=== PATIENT | female | born 1940 | race Caucasian/White ===

== ENCOUNTER 2018-01-05 10:09 | Emergency (ER) | payer OTHER, BC ==
[2018-01-05 10:18] VITALS: BP 123/55; PULSE 79; TEMP 98.3; BMI 19.8
--- NOTE | 2018-01-05 10:36 | PDOC ---
History of Present Illness - General Chief Complaint: Pain, Acute Stated Complaint: LEFT FOOT PAIN Time Seen by Provider: 01/05/18 10:18 History Source: Patient Exam Limitations: No Limitations - History of Present Illness Initial Comments: 01/05/18 10:36 77y F hx of MS (on copaxone, steroid infusion every 7 weeks), hypothyroidism, presents with complaint of L foot pain. Pt states that she was feeling fine, went out for a walk on , wearing sneakers, and noted mild discomfort on her L heel. She noticed it gradually became more painful over the past few days especially when she was walking, denies any fever, but noted she felt a chills yesterday. denies any falls/injuries, back pain, knee pain, hip pain, back pain , cp, sob, cough, abd pain, numbness/tingling/weakness. she went to an urgent care who gave hjer bactroban yesterday, she went back today and was referred to the ED for evaluation. Past History - Past Medical History Allergies/Adverse Reactions: Allergies Allergy/AdvReac Type Severity Reaction Status Date / Time No Known Allergies Allergy Verified 01/05/18 10:10 Home Medications: Ambulatory Orders Aspirin [ASA -] 81 mg PO DAILY 01/05/18 Glatiramer Acetate [Copaxone] 20 mg SQ ASDIR 01/05/18 Levothyroxine [Synthroid -] 112 mcg PO DAILY 01/05/18 Lisinopril [Zestril] 2.5 mg PO HS 01/05/18 Omeprazole 20 mg PO BID 01/05/18 Pravastatin Sodium [Pravachol (Nf)] 20 mg PO HS 01/05/18 COPD: No GI Disorders: Yes (ACID REFLUX) Thyroid Disease: Yes (HYPO) Other medical history: MS - Suicide/Smoking/Psychosocial Hx Smoking History: Former smoker Have you smoked in the past 12 months: No If you are a former smoker, when did you quit?: 1969 Information on smoking cessation initiated: No Hx Alcohol Use: Yes Drug/Substance Use Hx: No Substance Use Type: Alcohol Review of Systems - Review of Systems Able to Perform ROS?: Yes Comments:: 01/05/18 10:40 Constitutional - no reported Fever, Chills, Respiratory: no reported cough, sob, hemoptysis Cardiac: no reported chest pain, Abd/GI: no reported abd pain, nausea, vomiting, blood per rectum, melena, diarrhea : no reported dysuria, frequency, discharge Musculskelatal - +L heel pain no reported back pain, joint swelling skin - no reported bruising, erythema, rash neurological: no reported headache, numbness, focal weakness, tingling, ataxia, hematologic: no reported easy bruising, easy bleeding *Physical Exam - Vital Signs Last Vital Signs Temp Pulse Resp BP Pulse Ox 98.3 F 79 18 123/55 100 01/05/18 10:10 01/05/18 10:10 01/05/18 10:10 01/05/18 10:10 01/05/18 10:10 - Physical Exam Comments: 01/05/18 10:41 GENERAL: The patient is awake, alert, and fully oriented, Nontoxic - in no acute distress. EXTREMITIES: Normal range of motion, no edema. No clubbing or cyanosis. L heel , aprox .5cm palpable mass that is tender, central black tierney, cap refil <1 sec b/l, no warmth, induration, there are 4x nontender, not warm areas of blanching erythema on the heel (2-3 mm). NEUROLOGICAL: No facial assymetry, Normal speech, moving all 4 extremities spontaneously and symmetrically SKIN: Warm, Dry, normal turgor, see above ED Treatment Course - LABORATORY CBC & Chemistry Diagram: 01/05/18 10:00 Medical Decision Making - Medical Decision Making 01/05/18 10:44 ?fb no signs of acute infection including erythema, induration, fluctuance, warmth will ck xray due to hx of chills and being on immunosupressives due to MS will ck cbc will reassess 01/05/18 11:56 pts xray neg for fb or other acute process cbc w/o leukocytosis will dc the pt with podiatry fu pt feeling improved, abule to weight bear return precautions were discussed I discussed the physical exam findings, ancillary test results and final diagnoses with the patient. I answered all of the patient's questions. The patient was satisfied with the care received and felt comfortable with the discharge plan and treatment plan. The patient will call their primary care physician within 24 hours to arrange follow-up and will return to the Emergency Department with any new, persistent or worsening symptoms. *DC/Admit/Observation/Transfer Diagnosis at time of Disposition: Pain of right heel - Discharge Dispostion Disposition: HOME Condition at time of disposition: Improved Admit: No - Referrals - Patient Instructions Printed Discharge Instructions: DI for Foot Pain Additional Instructions: Return to the emergency department immediately with ANY new, persistent or worsening symptoms including any redness, swelling, warmth, worsening pain or other concerns. Rest over the next 2 or 3 days, avoid long walks. Motrin as needed for pain. Keep your legs elevated to minimize swelling You MUST call and follow up with a tumbler tender in 3-4 days for further evaluation of your symptoms. Results were discussed with you. Please make sure your doctor reviews the results of your emergency evaluation. Print Language: SLOVENIAN - Post Discharge Activity
[2018-01-05 11:03] LABS: HEMOGLOBIN 12.2 GM/dl (10.7-15.3); MCH 25.9 pg (25.7-33.7); MEAN CELL VOLUME 76.2 fl (80-96); MEAN PLT VOLUME 7.4 fl (7.5-11.1); PLATELET COUNT 262 K/MM3 (134-434); RBC 4.72 M/mm3 (3.60-5.2); RDW 14.4 % (11.6-15.6); WHITE BLOOD COUNT 8.2 K/mm3 (4.0-10.8)
[2018-01-05] MEDS ORDERED: IBUPROFEN 400 MG TABLET (FP) PO ONE ×2 (11:55→11:56)
[2018-01-05 15:25] LABS: PLATELET ESTIMATE ADEQUATE
== END 2018-01-05 12:01 | disposition home or self-care (01) ==
LOC: FER 10:09
DX: M79.672 Pain in left foot (principal); G35 Multiple sclerosis; E03.9 Hypothyroidism, unspecified; Z79.82 Long term (current) use of aspirin; K21.9 Gastro-esophageal reflux disease without esophagitis; Z87.891 Personal history of nicotine dependence
CPT/HCPCS: 36415; 73630-TC-LT; 85025; 99281-25

== ENCOUNTER 2018-05-13 14:52 | Observation (INO) | payer OTHER, BC ==
--- NOTE | 2018-05-13 15:02 | PDOC ---
History of Present Illness - General Chief Complaint: Diarrhea Stated Complaint: 4 DAYS DIARRHEA Time Seen by Provider: 05/13/18 14:53 - History of Present Illness Initial Comments: 77 year female of MS (on copaxone, steroid infusion every 7 weeks - last dose 5 weeks prior), hypothyroidism, and hypertension presenting with stool leakage for the past 3-4 nights in the setting of daily multi-episode diarrhea. States that during the night for the past three nights she has found watery stool in her bed that she was not aware of passing. During the day she has 3-4 episodes of watery diarrhea that she recognizes and is able to get to the bathroom in time to relieve. Denies fevers, chills, nausea, vomiting, abdominal pain, chest pain, SOB, or other symptoms. She has tried a BRAT diet and emptying her bowels / stoppign food intake at 14:00 everyday but without much lied of her symptoms. She has never had this night time stool leakage in the past. She has had a similar experience of frequent diarrhea three years prior that she attributed to some salad that she ate and she was treated by her GI doctor with a prescription medication that she states helped her. She attributes this episode to a "bad avocado" she ate 4 days prior. Her MS physician is Dr. Brownlee out of [facility]. 05/13/18 15:21 Past History - Past Medical History Allergies/Adverse Reactions: Allergies Allergy/AdvReac Type Severity Reaction Status Date / Time No Known Allergies Allergy Verified 05/13/18 14:53 Home Medications: Ambulatory Orders Aspirin [ASA -] 81 mg PO DAILY 01/05/18 Glatiramer Acetate [Copaxone] 20 mg SQ ASDIR 01/05/18 Levothyroxine [Synthroid -] 112 mcg PO DAILY 01/05/18 Lisinopril [Zestril] 5 mg PO HS 01/05/18 Omeprazole 20 mg PO BID 01/05/18 Pravastatin Sodium [Pravachol -] 40 mg PO HS 01/05/18 Cholecalciferol (Vitamin D3) [Vitamin D -] 2,000 unit PO DAILY 05/13/18 Diphenoxylate HCl/Atropine [Lomotil Tablet] 1 each PO Q6H PRN #30 tablet MDD 4 05/19/18 COPD: No GI Disorders: Yes (ACID REFLUX) Thyroid Disease: Yes (HYPO) - Suicide/Smoking/Psychosocial Hx Smoking History: Former smoker Have you smoked in the past 12 months: No If you are a former smoker, when did you quit?: 1970 Hx Alcohol Use: Yes Drug/Substance Use Hx: No Substance Use Type: Alcohol Review of Systems - Review of Systems Constitutional: No: Chills, Diaphoresis, Fever, Loss of Appetite HEENTM: No: Tearing, Recent change in vision Respiratory: No: Cough, Shortness of Breath Cardiac (ROS): No: Chest Pain, Edema, Irregular Heart Rate, Lightheadedness ABD/GI: Yes: Diarrhea. No: Nausea, Poor Appetite, Poor Fluid Intake, Vomiting, Abdominal cramping, Tarry Stools : No: Burning, Dysuria, Discharge, Frequency Musculoskeletal: No: Joint Pain, Joint Swelling, Muscle Weakness Integumentary: No: Bruising, Change in Color, Lesions, Lumps Neurological: No: Headache, Numbness, Paresthesia Psychiatric: No: Anxiety, Depression Endocrine: No: Increased Hunger, Increased Thirst Hematologic/Lymphatic: No: Anemia, Blood Clots, Easy Bleeding *Physical Exam - Physical Exam General Appearance: Yes: Nourished, Appropriately Dressed. No: Apparent Distress HEENT: positive: EOMI, DAVIS, Normal Voice, Other (Dry mucous membranes). negative: Normal ENT Inspection Neck: positive: Trachea midline, Normal Thyroid, Supple. negative: Tender, Rigid Respiratory/Chest: positive: Lungs Clear, Normal Breath Sounds. negative: Chest Tender, Respiratory Distress, Accessory Muscle Use Cardiovascular: positive: Regular Rhythm, Regular Rate Gastrointestinal/Abdominal: positive: Flat, Soft, Increased Bowel Sounds. negative: Normal Bowel Sounds, Tender Rectal Exam: positive: decreased tone. negative: normal rectal tone (decreased rectal tone but normal sensation), hemorrhoids Musculoskeletal: positive: Normal Inspection. negative: Decreased Range of Motion Extremity: positive: Normal Capillary Refill, Normal Inspection, Normal Range of Motion. negative: Tender Integumentary: positive: Normal Color, Dry, Warm Neurologic: positive: Fully Oriented, Alert, Normal Mood/Affect, Normal Response , Motor Strength 5/5 ED Treatment Course - LABORATORY CBC & Chemistry Diagram: 05/16/18 07:15 05/16/18 07:15 Medical Decision Making - Medical Decision Making Patient's presentation is highly suspicious for MS flare up given fecal incontinence and diminished rectal tone. Patient very hesitant about receiving further care in our facility as she has "hotbed operator" physicians in [place] [facility] who "are the best" in their field and she would like to follow up with them. We discussed this case with neurology in our facility and eventually she agreed to admission. Her labs were WNL and patient will be worked up further by neurology and medicine. *DC/Admit/Observation/Transfer Diagnosis at time of Disposition: Fecal incontinence - Discharge Dispostion Disposition: HOME Condition at time of disposition: Stable - Prescriptions - Referrals - Patient Instructions - Post Discharge Activity
[2018-05-13] MEDS ORDERED: SODIUM CHLORIDE 0.9% 500 ML INFUS.BAG IV ONE (16:16)
--- NOTE | 2018-05-13 16:31 | PDOC ---
Attending Attestation - Resident Resident Name: Edwin Hendrix - ED Attending Attestation I have performed the following: I have examined & evaluated the patient, The case was reviewed & discussed with the resident, I agree w/resident's findings & plan, Exceptions are as noted - HPI HPI: 05/13/18 16:29 77yo F hx MS (on steroids every 7 weeks, last 5 weeks ago), hypthyroid, HTN presents with 4 days of diarrhea 3-4 times per day. Stool is watery, brown, non bloody. She is concerned due to new fecal incontinence overnight for the last 3 days which she has never had before. She has been taking 10-12 loperamide daily (2mg each). Has tried BRAT diet with no relief. Denies abd pain, N/V. Reports some stomach rumbling prior to diarrhea. Reports she was on an antibiotic in the last 3 months for a UTI, does not remember the name. Pt reports a bowel movement every time she eats and reports 4lb weight loss over the last 4 days. Denies fevers, chills, cp, sob, focal weakness/numbness, headache, visual symptoms. Follows with MS specialist at [place]. No hx stool incontinence. - Physicial Exam PE: 05/13/18 17:05 GENERAL: Awake, alert, and fully oriented, in no acute distress HEAD: No signs of trauma EYES: PERRLA, EOMI, sclera anicteric, conjunctiva clear ENT: Oropharynx clear without exudates. Dry MM LUNGS: Breath sounds equal, clear to auscultation bilaterally. No wheezes, and no crackles HEART: Regular rate and rhythm, normal S1 and S2, no murmurs, rubs or gallops ABDOMEN: Soft, nontender, normoactive bowel sounds. No guarding, no rebound. No masses EXTREMITIES: Normal range of motion, no edema. No clubbing or cyanosis. No cords, erythema, or tenderness NEUROLOGICAL: agree with resident exam SKIN: Warm, Dry, normal turgor, no rashes or lesions noted. - Medical Decision Making 05/13/18 17:06 77yo F hx MMP including MS presents to the ED with 3-4 days of diarrhea with associated fecal incontinence. Vs wnl. Exam per Dr. Hendrix with mildly decreased rectal tone. DDx includes gastroenteritis vs colitis (possibly c.diff due to recent abx) vs MS flare. Plan -labs -IVF -stool studies -discuss with pt's neurologist -reassess 05/13/18 19:[address] Tyler who recommends MRI brain w/wo and lumbar MRI w/o Case discussed with EDB Hurtado Pt admitted to Dr. Pendleton obs Case discussed in detail with admitting physician including history, physical exam and ancillary studies. Admitting physician has assumed care for the patient, will follow all pending diagnostics and will complete the evaluation and treatment. Discharge Disposition - Diagnosis Fecal incontinence - Discharge Dispostion Disposition: HOME Condition at time of disposition: Stable Decision to Admit order: Yes - Prescriptions - Referrals - Patient Instructions - Post Discharge Activity
[2018-05-13 17:02] LABS: BASO % 0.4 % (0-2.0); EOS % 1.3 % (0-4.5); HEMATOCRIT 36.1 % (32.4-45.2); HEMOGLOBIN 11.7 GM/dl (10.7-15.3); LYMPH % 35.4 % (8-40); MCH 25.2 pg (25.7-33.7); MCHC 32.5 g/dl (32.0-36.0); MEAN CELL VOLUME 77.7 fl (80-96); MEAN PLT VOLUME 8.3 fl (7.5-11.1); MONO % 15.1 % (3.8-10.2); NEUT % 47.8 % (42.8-82.8); PLATELET COUNT 214 K/MM3 (134-434); RBC 4.64 M/mm3 (3.60-5.2); WHITE BLOOD COUNT 3.2 K/mm3 (4.0-10.8)
[2018-05-13 17:12] LABS: ALBUMIN 3.6 g/dl (3.5-5.0); ALK PHOS 45 U/L (32-92); ANION GAP 9 MMOL/L (8-16); BILIRUBIN,TOTAL 0.6 mg/dl (0.2-1.0); BLOOD UREA NITROGEN 13 mg/dl (7-18); CALCIUM 8.9 mg/dl (8.4-10.2); CHLORIDE 99 mmol/L (98-107); CO2 26 mmol/L (22-28); CREATININE 0.6 mg/dl (0.6-1.3); GLUCOSE,RANDOM 105 mg/dl (74-106); SGOT/AST 21 U/L (10-42); SGPT/ALT 12 U/L (10-40); SODIUM 134 mmol/L (136-145); TOT PROT 6.4 g/dl (6.4-8.3)
[2018-05-13] MEDS ORDERED: POTASSIUM CHLORIDE TABS 20 MEQ TABLET.ER (FP) PO ONE ×2 (17:39→18:23)
--- NOTE | 2018-05-13 22:24 | HP ---
CHIEF COMPLAINT: diarrhea PCP: Bria Sanchez; Neuro: Dr. Brownlee @ [facility] ([facility]) HISTORY OF PRESENT ILLNESS: This is a 77 year old female with a past medical history significant for MS and HTN who presented to the ED with a 4-5 day history of loose watery BMS. Initially BMs were much more frequent, now 3-4 times during the day. She reports chills one day last week but otherwise denies fever. She is concerned because she notes that she is incontinent of stool at night for the past several nights. She states that she wakes up soiled. During the day she notes a sense of urgency to make it to the toilet to have a BM but is able to make it. She thinks this may be related to an avocado she ate last week. She had a similar episode 3 years ago after eating from a salad bar and she was referred to a english drawer at [facility] who prescribed a medication for her that resolved her symptoms completely. SHe reports that her stool is a light reddish brown color. She denies any blood or mucous in the stool. The ED staff report a foul odor to the stool. ER course was notable for: (1) WBC 3.2 (2) K 3.0 Recent Travel: pt denies PAST MEDICAL HISTORY: HTN, MS, hypothyroid PAST SURGICAL HISTORY: Social History: Smoking: smoked in college and grad school. none since Alcohol: occasional Drugs: pt denies Family History: brother s/p prostate ca, + ETOH Allergies No Known Allergies Allergy (Verified 05/13/18 14:53) HOME MEDICATIONS: 3 Medication Instructions Recorded Aspirin [ASA -] 81 mg PO DAILY 01/05/18 Glatiramer Acetate [Copaxone] 20 mg SQ ASDIR 01/05/18 Levothyroxine [Synthroid -] 112 mcg PO DAILY 01/05/18 Lisinopril [Zestril] 2.5 mg PO HS 01/05/18 Omeprazole 20 mg PO BID 01/05/18 Pravastatin Sodium [Pravachol (Nf)] 20 mg PO HS 01/05/18 Cholecalciferol (Vitamin D3) 200 unit PO DAILY 05/13/18 [Vitamin D3 -] Loperamide HCl [Loperamide] 2 mg PO PRN PRN 05/13/18 REVIEW OF SYSTEMS CONSTITUTIONAL: Absent: fever, chills, diaphoresis, generalized weakness, malaise, loss of appetite, weight change HEENT: Absent: rhinorrhea, nasal congestion, throat pain, throat swelling, difficulty swallowing, mouth swelling, ear pain, eye pain, visual changes CARDIOVASCULAR: Absent: chest pain, syncope, palpitations, irregular heart rate, lightheadedness , peripheral edema RESPIRATORY: Absent: cough, shortness of breath, dyspnea with exertion, orthopnea, wheezing, stridor, hemoptysis GASTROINTESTINAL: Present: diarrhea Absent: abdominal pain, abdominal distension, nausea, vomiting, constipation, melena, hematochezia GENITOURINARY: Absent: dysuria, frequency, urgency, hesitancy, hematuria, flank pain, genital pain MUSCULOSKELETAL: Absent: myalgia, arthralgia, joint swelling, back pain, neck pain SKIN: Absent: rash, itching, pallor HEMATOLOGIC/IMMUNOLOGIC: Absent: easy bleeding, easy bruising, lymphadenopathy, frequent infections ENDOCRINE: Absent: unexplained weight gain, unexplained weight loss, heat intolerance, cold intolerance NEUROLOGIC: Absent: headache, focal weakness or paresthesias, dizziness, unsteady gait, seizure, mental status changes, bladder or bowel incontinence PSYCHIATRIC: Absent: anxiety, depression, suicidal or homicidal ideation, hallucinations. PHYSICAL EXAMINATION Vital Signs - 24 hr 3 05/13/18 05/13/18 14:53 20:41 Temperature 97.5 F L Pulse Rate 73 Pulse Rate [ 88 Left] Respiratory 20 18 Rate Blood Pressure 127/77 Blood Pressure 145/71 [Right] O2 Sat by Pulse 100 100 Oximetry (%) GENERAL: Awake, alert, and fully oriented, in no acute distress. HEAD: Normal with no signs of trauma. EYES: Pupils equal, round and reactive to light, extraocular movements intact, sclera anicteric, conjunctiva clear. No lid lag. EARS, NOSE, THROAT: Ears normal, nares patent, oropharynx clear without exudates. Moist mucous membranes. NECK: Normal range of motion, supple without lymphadenopathy, JVD, or masses. LUNGS: Breath sounds equal, clear to auscultation bilaterally. No wheezes, and no crackles. No accessory muscle use. HEART: Regular rate and rhythm, normal S1 and S2 without murmur, rub or gallop. ABDOMEN: Soft, nontender, not distended, normoactive bowel sounds, no guarding, no rebound, no masses. No hepatomegaly or splenomegaly. MUSCULOSKELETAL: Normal range of motion at all joints. No bony deformities or tenderness. No CVA tenderness. UPPER EXTREMITIES: 2+ pulses, warm, well-perfused. No cyanosis. No clubbing. No peripheral edema. LOWER EXTREMITIES: 2+ pulses, warm, well-perfused. No calf tenderness. No peripheral edema. NEUROLOGICAL: Cranial nerves II-XII intact. Normal speech. Normal gait. PSYCHIATRIC: Cooperative. Good eye contact. Appropriate mood and affect. SKIN: Warm, dry, normal turgor, no rashes or lesions noted, normal capillary refill. Laboratory Results - last 24 hr 3 05/13/18 05/13/18 16:00 16:00 WBC 3.2 L RBC 4.64 Hgb 11.7 Hct 36.1 MCV 77.7 L MCH 25.2 L MCHC 32.5 RDW 15.0 Plt Count 214 MPV 8.3 Absolute Neuts (auto) 1.6 Neutrophils % 47.8 Lymphocytes % 35.4 Monocytes % 15.1 H Eosinophils % 1.3 Basophils % 0.4 Sodium 134 L Potassium 3.0 L Chloride 99 Carbon Dioxide 26 Anion Gap 9 BUN 13 Creatinine 0.6 Creat Clearance w eGFR > 60 Random Glucose 105 Calcium 8.9 Total Bilirubin 0.6 AST 21 ALT 12 Alkaline Phosphatase 45 Total Protein 6.4 Albumin 3.6 Chest xray official read pending, no obvious infiltrates or effusions ASSESSMENT/PLAN: 77yF with PMH MS, HTN, hypothyroidism presented to the ED with a 4-5 day h/o LBM with nocturnal fecal incontinence. Acute diarrheal illness - stool sent for testing - start flagyl - consider GI consult - consider CT abd/pel if not improving - BRAT diet as pt with no abd pain fecal incontinency - likely due to urgency associated with acute diarrheal illness - ED resident reported mildly decreased rectal tone on exam - will proceed with MRI head and l-s spine as recommended by neuro to r/o new lesions/demyelinating plaques hypokalemia - given 40mEq po - repeat bmp 12am MS - cont home copaxone - receives IV steroids [id number], last 4 weeks ago HTN - cont home meds HLD - home pravachol changed to formulary lipitor hypothyroid - TSH in am - cont home synthroid DVT PPX - heparin deferred as expected LOS less than 48h, pt encourage to ambulate FEN - NS @ 75cc/hr - BMP at midnight - BRAT diet Dispo: pt currently requires further observation for management of her emergent condition. Visit type - Emergency Visit Emergency Visit: Yes ED Registration Date: 05/13/18 Care time: The patient presented to the Emergency Department on the above date and was hospitalized for further evaluation of their emergent condition. - New Patient This patient is new to me today: Yes Date on this admission: 05/13/18 - Critical Care Critical Care patient: No Hospitalist Screening - Colonoscopy Questionnaire Colonoscopy Questionnaire: Colonoscopy Questionnaire - Patient: 50 - 75 years old and never had a screening colonoscopy: No History of colon or rectal polyps, or CA: No History of IBD, Crohn's disease or UC: No History of abdominal radiation therapy as a child: No - Relative: 1 with colon or rectal CA, or polyps at age 60 or younger: No Colon or rectal CA diagnosed at age 45 or younger: No Multiple relatives with colon or rectal CA: No - Outcome: Screening Result: Negative Screen
[2018-05-13] MEDS ORDERED: SODIUM CHLORIDE 1,000 ML IV SCH (22:45)
[2018-05-13] MEDS ORDERED: LOPERAMIDE HCL 2 MG CAPSULE PO PRN (22:46)
[2018-05-13] MEDS ORDERED: GLATIRAMER ACETATE 20 MG SQ SCH ×2 (23:00)
[2018-05-13] MEDS: PANTOPRAZOLE 20 MG TABLET (FP) PO SCH (23:23)
[2018-05-13] MEDS: LISINOPRIL 5 MG TABLET (FP) PO SCH (23:23)
[2018-05-13] MEDS: ATORVASTATIN CA 10 MG TABLET (FP) PO SCH (23:23)
[2018-05-14 01:20] LABS: ANION GAP 5 MMOL/L (8-16); BLOOD UREA NITROGEN 10 mg/dL (7-18); CHLORIDE 108 mmol/L (98-107); CO2 28 mmol/L (21-32); CREATININE 0.5 mg/dL (0.55-1.02); GLUCOSE,RANDOM 101 mg/dL (74-106); MAGNESIUM 1.6 mg/dL (1.8-2.4); PHOSPHOROUS 2.2 mg/dL (2.5-4.9); POTASSIUM 3.2 mmol/L (3.5-5.1); SODIUM 141 mmol/L (136-145)
[2018-05-14] MEDS ORDERED: POTASSIUM CHLORIDE TABS 20 MEQ TABLET.ER (FP) PO ONE (02:03)
[2018-05-14] MEDS ORDERED: MAGNESIUM SULF 50% (8.12 MEQ/2 ML-1 GM VIAL) IVPB ONE (02:03)
[2018-05-14 02:12] VITALS: BMI 18.9
[2018-05-14] MEDS ORDERED: MAGNESIUM SULF 50% (8.12 MEQ/2 ML-1 GM VIAL) ONE (02:14)
[2018-05-14] MEDS: LEVOTHYROXINE NA 112 MCG TABLET (FP) PO SCH (06:34)
--- NOTE | 2018-05-14 08:13 | PN ---
Physical Exam: SUBJECTIVE: Patient seen and examined, Reports abdominal cramping and 3 loose stools, denies a tactile fever OBJECTIVE: Patient is a 77 year old female with a past medical history significant for MS and HTN, Patient was admitted for an emergency department observation for diarrhea Vital Signs Period Temp Pulse Resp BP Sys/Morales Pulse Ox Last 24 Hr 97.5 F-98.8 F 73-88 18-20 127-160/63-77 98-100 GENERAL: The patient is awake, alert, and fully oriented, in no acute distress. HEAD: Normal with no signs of trauma. EYES: PERRL, extraocular movements intact, sclera anicteric, conjunctiva clear. No ptosis. ENT: Ears normal, nares patent, oropharynx clear without exudates, moist mucous membranes. NECK: Trachea midline, full range of motion, supple. LUNGS: Breath sounds equal, clear to auscultation bilaterally, no wheezes, no crackles, no accessory muscle use. HEART: Regular rate and rhythm, S1, S2 without murmur, rub or gallop. ABDOMEN: Soft, nontender, nondistended, Hyperactive bowel sounds, no guarding, no rebound, no hepatosplenomegaly, no masses. EXTREMITIES: 2+ pulses, warm, well-perfused, no edema. NEUROLOGICAL: Cranial nerves II through XII grossly intact. Normal speech, steady gait noted. PSYCH: Normal mood, normal affect. SKIN: Warm, dry, normal turgor, no rashes or lesions noted Laboratory Results - last 24 hr 05/13/18 05/13/18 05/14/18 16:00 16:00 00:35 WBC 3.2 L RBC 4.64 Hgb 11.7 Hct 36.1 MCV 77.7 L MCH 25.2 L MCHC 32.5 RDW 15.0 Plt Count 214 MPV 8.3 Absolute Neuts (auto) 1.6 Neutrophils % 47.8 Lymphocytes % 35.4 Monocytes % 15.1 H Eosinophils % 1.3 Basophils % 0.4 Sodium 134 L 141 Potassium 3.0 L 3.2 L Chloride 99 108 H Carbon Dioxide 26 28 Anion Gap 9 5 L BUN 13 10 Creatinine 0.6 0.5 L Creat Clearance w eGFR > 60 > 60 Random Glucose 105 101 Calcium 8.9 8.0 L Phosphorus 2.2 L Magnesium 1.6 L Total Bilirubin 0.6 AST 21 ALT 12 Alkaline Phosphatase 45 Total Protein 6.4 Albumin 3.6 Active Medications Generic Name Dose Route Start Last Admin Trade Name Freq PRN Reason Stop Dose Admin Aspirin 81 mg 05/14/18 10:00 Asa - PO DAILY JOVANNI Atorvastatin Calcium 10 mg 05/13/18 23:00 05/13/18 23:23 Lipitor - PO 10 mg HS JOVANNI Administration Cholecalciferol 2,000 unit 05/14/18 10:00 Vitamin D3 - PO DAILY JOVANNI Metronidazole 500 mg in 100 mls @ 100 mls/hr 05/13/18 20:00 05/14/18 01:55 Flagyl 500mg Premixed Ivpb - IVPB 100 mls/hr Q8H-IV JOVANNI Administration Sodium Chloride 1,000 mls @ 75 mls/hr 05/13/18 22:45 05/14/18 01:55 Normal Saline - IV 75 mls/hr ASDIR JOVANNI Administration Levothyroxine Sodium 112 mcg 05/14/18 07:00 05/14/18 06:34 Synthroid - PO 112 mcg DAILY@0700 JOVANNI Administration Lisinopril 5 mg 05/13/18 23:00 05/13/18 23:23 Prinivil PO 5 mg HS JOVANNI Administration Loperamide HCl 2 mg 05/13/18 22:46 Imodium - PO Q4H PRN DIARRHEA Non-Formulary Medication 20 mg 05/13/18 23:00 Glatiramer Acetate [Copaxone] SQ ASDIR JOVANNI Pantoprazole Sodium 20 mg 05/13/18 23:00 05/13/18 23:23 Protonix - PO 20 mg BID JOVANNI Administration IMAGING Chest xray official read pending, no obvious infiltrates or effusions ASSESSMENT/PLAN: 1) GI Acute diarrheal illness - pt denies any abdominal pain, benign abd exam, pending stool studies, c diff is negative - continue flagyl - appreciate GI and ID input - BRAT diet as pt with no abd pain fecal incontinency - report Incontinence at night of feces, due to urgency associated with acute diarrheal illness 2)neuro MS - cont home copaxone,receives IV steroids [id number], last 4 weeks ago - case discussed with neurologist Dr. Jeff, unlikely MS exacerbation patient will require close follow-up with neurologist as outpatient 3) cardiovascular HTN - cont home meds HLD - home pravachol changed to formulary lipitor 4) endo hypothyroid - TSH in am - cont home synthroid f/e/n hypokalemia resolved BRAT diet NS @ 75cc/hr DVT PPX - heparin deferred as expected LOS less than 48h, pt encourage to ambulate Dispo: pt currently requires further observation for management of her emergent condition. Visit type - Emergency Visit Emergency Visit: Yes ED Registration Date: 05/13/18 Care time: The patient presented to the Emergency Department on the above date and was hospitalized for further evaluation of their emergent condition. - New Patient This patient is new to me today: Yes Date on this admission: 05/14/18 - Critical Care Critical Care patient: No - Discharge Referral Referred to [facility] No
[2018-05-14 08:15] LABS: HEMATOCRIT 34.4 % (32.4-45.2); HEMOGLOBIN 10.8 GM/dl (10.7-15.3); MCH 24.3 pg (25.7-33.7); MCHC 31.2 g/dl (32.0-36.0); MEAN CELL VOLUME 77.8 fl (80-96); MEAN PLT VOLUME 8.7 fl (7.5-11.1); PLATELET COUNT 201 K/MM3 (134-434); RBC 4.42 M/mm3 (3.60-5.2); WHITE BLOOD COUNT 2.8 K/mm3 (4.0-10.8)
[2018-05-14 08:37] LABS: ANION GAP 7 MMOL/L (8-16); BLOOD UREA NITROGEN 8 mg/dl (7-18); CALCIUM 8.1 mg/dl (8.4-10.2); CHLORIDE 109 mmol/L (98-107); CO2 23 mmol/L (22-28); CREATININE 0.6 mg/dl (0.6-1.3); GLUCOSE,RANDOM 84 mg/dl (74-106); MAGNESIUM 2.2 mg/dL (1.8-2.4); PHOSPHOROUS 2.6 mg/dl (2.5-4.6); POTASSIUM 3.7 mmol/L (3.5-5.1); SODIUM 139 mmol/L (136-145)
--- NOTE | 2018-05-14 09:11 | CON.NEURO ---
Consult - Alcohol/Substance Use Hx Alcohol Use: Yes - Smoking History Smoking history: Former smoker Have you smoked in the past 12 months: No If you are a former smoker, when did you quit?: 1969 Home Medications - Allergies Allergies/Adverse Reactions: Allergies Allergy/AdvReac Type Severity Reaction Status Date / Time No Known Allergies Allergy Verified 05/13/18 14:53 - Home Medications Home Medications: Ambulatory Orders Aspirin [ASA -] 81 mg PO DAILY 01/05/18 Glatiramer Acetate [Copaxone] 20 mg SQ ASDIR 01/05/18 Levothyroxine [Synthroid -] 112 mcg PO DAILY 01/05/18 Lisinopril [Zestril] 5 mg PO HS 01/05/18 Omeprazole 20 mg PO BID 01/05/18 Pravastatin Sodium [Pravachol (Nf)] 40 mg PO HS 01/05/18 Cholecalciferol (Vitamin D3) [Vitamin D3 -] 2,000 unit PO DAILY 05/13/18 Loperamide HCl [Loperamide] 2 mg PO PRN PRN 05/13/18 Physical Exam-Neuro Vital Signs: Vital Signs Temperature 98.8 F 05/14/18 06:41 Pulse Rate 79 05/14/18 06:41 Respiratory Rate 16 05/14/18 08:51 Blood Pressure 160/63 05/14/18 06:41 O2 Sat by Pulse Oximetry (%) 99 05/14/18 08:51 Labs: CBC, BMP 05/14/18 07:30 05/14/18 07:30 Assessment/Plan cc Severe loose stools for five days HPI 77 year old female history of MS, HTN, Hypothyroidism. [facility] She is being treated with copaxone and serial iv solumedrol 1 gm every seven Weeks. She has MS for ast 30 plus years. Her neurological deficit is balance difficultyand numbness of left feet. She denies any back pain, or weakness or new focal sensory symptoms. She denies any dysphagia , dysarthria or diplopia. She has lucille seen by patient admitting representative. She feels her stool and She denies any lack of incontience without feeling stool. She only have accident during night and not during the day h PAST MEDICAL HISTORY: HTN, MS, hypothyroid PAST SURGICAL HISTORY: Social History: Smoking: smoked in college and grad school. none since Alcohol: occasional Drugs: pt denies Family History: brother s/p prostate ca, + ETOH Allergies No Known Allergies Allergy (Verified 05/13/18 14:53) HOME MEDICATIONS: 3 Medication Instructions Recorded Aspirin [ASA -] 81 mg PO DAILY 01/05/18 Glatiramer Acetate [Copaxone] 20 mg SQ ASDIR 01/05/18 Levothyroxine [Synthroid -] 112 mcg PO DAILY 01/05/18 Lisinopril [Zestril] 2.5 mg PO HS 01/05/18 Omeprazole 20 mg PO BID 01/05/18 Pravastatin Sodium [Pravachol (Nf)] 20 mg PO HS 01/05/18 Cholecalciferol (Vitamin D3) 200 unit PO DAILY 05/13/18 [Vitamin D3 -] Loperamide HCl [Loperamide] 2 mg PO PRN PRN 05/13/18 ROS REVIEWED IN CHART NEUROLOGICAL EXAMINATION: Alert oriented x 3, speech is normal eomi, pupils reactive no face asymmetry 5/5 all extremity reflex are normal sensation is normal except left great toe region gait not tested Assessment- Severe diarrhoea , Unlikley to be acute MS exacerbation. Plan- spoke to patient and primary team, there is no need for mri of Brain or L SPINE. - GI is going to see her Thanking you so much Jp Warner MD
[2018-05-14 09:53] LABS: PLATELET ESTIMATE ADEQUATE
[2018-05-14] MEDS: CHOLECALCIFEROL (VITAMIN D3) 1,000 UNIT TABLET (FP) PO SCH (10:01)
[2018-05-14] MEDS: ASPIRIN 81 MG CHEWABLE TABLETS PO SCH (10:02)
[2018-05-14] MEDS: PANTOPRAZOLE 20 MG TABLET (FP) PO SCH ×2 (10:02→21:41)
[2018-05-14] MEDS: D5-1/2NS+20 MEQ KCL - 20 MEQ/1,000 ML INFUS.BAG IV SCH (10:30)
--- NOTE | 2018-05-14 10:39 | PN ---
Progress Note (short form) - Note Progress Note: ID Consult dictated Enterocolitis R/O enteric pathogens Leukopenia ? viral enterocolitis MS Await stool studies IVF hydration Observe off antibiotics
[2018-05-14] MEDS: LACTOBACILLUS ACIDOPHILUS 1 TABLET PO SCH (11:00)
--- NOTE | 2018-05-14 11:28 | CONS ---
DATE OF CONSULTATION: DATE OF DICTATION: 05/14/2018 The patient is 77-year-old female who was evaluated for diarrhea. She has a history of long standing multiple sclerosis. She reports that on May 09, she developed onset of diarrhea. She reports having multiple loose, brown, watery, non-bloody stools during the day, which got progressively worse. She was having diarrhea after every meal. She reports having 3-4 loose bowel movements a day. She had attempted to fast after 2 p.m. in an attempt to stop the diarrhea; however, was unsuccessful. At night, she reports development fecal incontinence, secondary to the diarrhea. She reports a 4-pound weight loss. She denies any abdominal pain, no nausea, vomiting, no associated fever or chills. Her partner, who shares meals with her, did not develop similar symptoms. She denies any recent travel. She did take Augmentin in January 2018 for a urinary tract infection. Stool studies have been obtained. Her hospital course has been significant for leukopenia. She has remained afebrile. PAST MEDICAL HISTORY: Positive for long standing multiple sclerosis, hypothyroidism, hypertension. ALLERGIES: No known allergies. MEDICATIONS: Aspirin, Synthroid, Zestril, omeprazole, Pravachol. SOCIAL HISTORY: Lives at home with her significant other. She is a nonsmoker. SYSTEMS REVIEW: Neurologic: As per HPI. Cardiac: Negative chest pain, or palpitations. Respiratory: Negative cough, or sputum production. Gastrointestinal: As per HPI. Genitourinary: Negative for urinary tract infection. LABORATORY DATA: White count 2.8, 47 neutrophils, 35 lymphocytes, 15 monocytes, 1 eosinophil, hematocrit 34.4, platelet count 201. Creatinine 6.0. Chest x-ray negative. PHYSICAL EXAMINATION: General: On exam, she is weak-appearing and appears dehydrated. Vitals: Temperature 98.8, blood pressure 160/63, pulse 78 and regular, respirations 18 per minute. HEENT: Sclera anicteric. Dry mucous membranes. Heart: Sounds S1, S2. Lungs: Clear bilaterally. Abdomen: Is slightly distended, soft, positive bowel sounds, no tenderness elicited, no mass, rebound, or rigidity. Extremities: Negative for edema. IMPRESSION: 1. Enterocolitis, rule out enteric pathogens. 2. Leukopenia, possibly secondary to viral enterocolitis. 3. Multiple sclerosis. Await stool culture, stool ova and parasite, C. difficile, stool occult, stool specimen for rotavirus and norovirus. IV fluid hydration. Supportive measures. Thank you for the kind referral. NAVEED PERRY M.D. [id number]
--- NOTE | 2018-05-14 17:20 | EKG ---
Test Reason : Blood Pressure : / mmHG Vent. Rate : 065 BPM Atrial Rate : 065 BPM P-R Int : 226 ms QRS Dur : 084 ms QT Int : 452 ms P-R-T Axes : 078 -07 037 degrees QTc Int : 470 ms SINUS RHYTHM WITH 1ST DEGREE A-V BLOCK CANNOT RULE OUT ANTERIOR INFARCT , AGE UNDETERMINED ABNORMAL ECG Confirmed by MD MICHAEL, RICHARD ([id number]) on 05/14/2018 5:19:44 PM Referred By: JOLEEN Confirmed By:RICHARD ORDRIGUEZ MD
[2018-05-14] MEDS: ATORVASTATIN CA 10 MG TABLET (FP) PO SCH (21:41)
[2018-05-14] MEDS: LISINOPRIL 5 MG TABLET (FP) PO SCH (21:41)
[2018-05-15] MEDS: LEVOTHYROXINE NA 112 MCG TABLET (FP) PO SCH (06:41)
[2018-05-15 08:06] LABS: BASO % 0.5 % (0-2.0); EOS % 3.2 % (0-4.5); HEMATOCRIT 30.4 % (32.4-45.2); HEMOGLOBIN 9.4 GM/dl (10.7-15.3); LYMPH % 28.3 % (8-40); MCH 23.8 pg (25.7-33.7); MCHC 30.8 g/dl (32.0-36.0); MEAN CELL VOLUME 77.1 fl (80-96); MONO % 12.3 % (3.8-10.2); NEUT % 55.7 % (42.8-82.8); PLATELET COUNT 186 K/MM3 (134-434); RBC 3.94 M/mm3 (3.60-5.2); RDW 14.9 % (11.6-15.6); WHITE BLOOD COUNT 2.7 K/mm3 (4.0-10.8)
[2018-05-15 08:13] LABS: ANION GAP 4 MMOL/L (8-16); BLOOD UREA NITROGEN 6 mg/dl (7-18); CALCIUM 7.5 mg/dl (8.4-10.2); CHLORIDE 111 mmol/L (98-107); CO2 21 mmol/L (22-28); CREATININE 0.6 mg/dl (0.6-1.3); GLUCOSE,RANDOM 107 mg/dl (74-106); POTASSIUM 3.3 mmol/L (3.5-5.1); SODIUM 136 mmol/L (136-145)
--- NOTE | 2018-05-15 09:45 | PN ---
Progress Note, Physician History of Present Illness: OOB in chair Had episode of explosive diarrhea this am Denies abdominal pain or rectal bleeding + low grade fever Remains leukopenic C diff (-) Other stool studies pending - Current Medication List Current Medications: Active Medications Aspirin (Asa -) 81 mg PO DAILY [facility] Last Admin: 05/14/18 10:02 Dose: 81 mg Atorvastatin Calcium (Lipitor -) 10 mg PO [facility] Last Admin: 05/14/18 21:41 Dose: 10 mg Cholecalciferol (Vitamin D3 -) 2,000 unit PO DAILY [facility] Last Admin: 05/14/18 10:01 Dose: 2,000 unit Metronidazole (Flagyl 500mg Premixed Ivpb -) 500 mg in 100 mls @ 100 mls/hr IVPB Q8H-IV [facility] Last Admin: 05/15/18 02:00 Dose: 100 mls/hr Potassium Chloride/Dextrose/Sod Cl (D5-1/2ns+20 Meq Kcl -) 20 meq in 1,000 mls @ 100 mls/hr IV ASDIR [facility] Last Admin: 05/14/18 10:30 Dose: 100 mls/hr Lactobacillus Acidophilus (Bacid -) 1 tab PO DAILY [facility] Last Admin: 05/14/18 11:00 Dose: 1 tab Levothyroxine Sodium (Synthroid -) 112 mcg PO DAILY@0700 [facility] Last Admin: 05/15/18 06:41 Dose: 112 mcg Lisinopril (Prinivil) 5 mg PO [facility] Last Admin: 05/14/18 21:41 Dose: 5 mg Loperamide HCl (Imodium -) 2 mg PO Q4H PRN PRN Reason: DIARRHEA Non-Formulary Medication (Glatiramer Acetate [Copaxone]) 20 mg SQ ASDIR [facility] Pantoprazole Sodium (Protonix -) 20 mg PO BID [facility] Last Admin: 05/14/18 21:41 Dose: 20 mg - Objective Vital Signs: Vital Signs Temperature 100.2 F H 05/15/18 05:52 Pulse Rate 77 05/15/18 05:52 Respiratory Rate 18 05/15/18 05:52 Blood Pressure 140/56 05/15/18 05:52 O2 Sat by Pulse Oximetry (%) 93 L 05/15/18 05:52 Constitutional: Yes: No Distress Eyes: Yes: Conjunctiva Clear Cardiovascular: Yes: Regular Rate and Rhythm, S1, S2 Respiratory: Yes: CTA Bilaterally Gastrointestinal: Yes: Normal Bowel Sounds, Soft. No: Tenderness Edema: No Labs: CBC, BMP 05/15/18 07:15 05/15/18 07:15 Assessment/Plan Enterocolitis ? infectious etio ? viral Low grade temp/ leukopenia MS Will obtain BC in light of low grade fever Await additional stool studies
[2018-05-15] MEDS: PANTOPRAZOLE 20 MG TABLET (FP) PO SCH ×2 (10:44→21:04)
[2018-05-15] MEDS: LACTOBACILLUS ACIDOPHILUS 1 TABLET PO SCH (10:44)
[2018-05-15] MEDS: ASPIRIN 81 MG CHEWABLE TABLETS PO SCH (10:44)
[2018-05-15] MEDS: CHOLECALCIFEROL (VITAMIN D3) 1,000 UNIT TABLET (FP) PO SCH (10:44)
[2018-05-15] MEDS: D5-1/2NS+20 MEQ KCL - 20 MEQ/1,000 ML INFUS.BAG IV SCH ×2 (10:45→14:13)
--- NOTE | 2018-05-15 12:35 | PN ---
Physical Exam: SUBJECTIVE: Patient seen and examined, reports Ongoing incontinence of loose stools, patient denies any abdominal pain or fever OBJECTIVE: Patient is a 77 year old female with a past medical history significant for MS and HTN, Patient was admitted for an emergency department observation for diarrhea Vital Signs Period Temp Pulse Resp BP Sys/Morales Pulse Ox Last 24 Hr 98.1 F-100.2 F 68-77 18-18 104-140/41-58 93-99 GENERAL: The patient is awake, alert, and fully oriented, in no acute distress. HEAD: Normal with no signs of trauma. EYES: PERRL, extraocular movements intact, sclera anicteric, conjunctiva clear. No ptosis. ENT: Ears normal, nares patent, oropharynx clear without exudates, moist mucous membranes. NECK: Trachea midline, full range of motion, supple. LUNGS: Breath sounds equal, clear to auscultation bilaterally, no wheezes, no crackles, no accessory muscle use. HEART: Regular rate and rhythm, S1, S2 without murmur, rub or gallop. ABDOMEN: Soft, nontender, nondistended, normoactive bowel sounds, no guarding, no rebound, no hepatosplenomegaly, no masses. EXTREMITIES: 2+ pulses, warm, well-perfused, no edema. NEUROLOGICAL: Cranial nerves II through XII grossly intact. Normal speech, gait not observed. PSYCH: Normal mood, normal affect. SKIN: Warm, dry, normal turgor, no rashes or lesions noted Laboratory Results - last 24 hr 05/15/18 05/15/18 07:15 07:15 WBC 2.7 L RBC 3.94 Hgb 9.4 L Hct 30.4 L MCV 77.1 L MCH 23.8 L MCHC 30.8 L RDW 14.9 Plt Count 186 MPV 8.0 Absolute Neuts (auto) 1.5 Neutrophils % 55.7 Lymphocytes % 28.3 Monocytes % 12.3 H Eosinophils % 3.2 Basophils % 0.5 Sodium 136 Potassium 3.3 L Chloride 111 H Carbon Dioxide 21 L Anion Gap 4 L BUN 6 L Creatinine 0.6 Creat Clearance w eGFR > 60 Random Glucose 107 H D Calcium 7.5 L Active Medications Generic Name Dose Route Start Last Admin Trade Name Freq PRN Reason Stop Dose Admin Aspirin 81 mg 05/14/18 10:00 05/15/18 10:44 Asa - PO 81 mg DAILY JOVANNI Administration Atorvastatin Calcium 10 mg 05/13/18 23:00 05/14/18 21:41 Lipitor - PO 10 mg HS JOVANNI Administration Cholecalciferol 2,000 unit 05/14/18 10:00 05/15/18 10:44 Vitamin D3 - PO 2,000 unit DAILY JOVANNI Administration Potassium Chloride/Dextrose/Sod Cl 20 meq in 1,000 mls @ 100 mls/hr 05/14/18 10:30 05/15/18 10:45 D5-1/2ns+20 Meq Kcl - IV 100 mls/hr ASDIR JOVANNI Administration Lactobacillus Acidophilus 1 tab 05/14/18 10:30 05/15/18 10:44 Bacid - PO 1 tab DAILY JOVANNI Administration Levothyroxine Sodium 112 mcg 05/14/18 07:00 05/15/18 06:41 Synthroid - PO 112 mcg DAILY@0700 JOVANNI Administration Lisinopril 5 mg 05/13/18 23:00 05/14/18 21:41 Prinivil PO 5 mg HS JOVANNI Administration Loperamide HCl 2 mg 05/13/18 22:46 Imodium - PO Q4H PRN DIARRHEA Non-Formulary Medication 20 mg 05/13/18 23:00 Glatiramer Acetate [Copaxone] SQ ASDIR JOVANNI Pantoprazole Sodium 20 mg 05/13/18 23:00 05/15/18 10:44 Protonix - PO 20 mg BID JOVANNI Administration Microbiology 05/13/18 15:57 Gram Stain - Final Stool Salmonella/Shigella Culture - Preliminary NO ENTERIC PATHOGENS, 24 HOURS, ON PRIMARY PLATES Yersinia Culture - Preliminary NO ENTERIC PATHOGENS, 24 HOURS, ON PRIMARY PLATES Vibrio Culture - Final Escherichia coli 0157 Culture - Final NO GROWTH OF E COLI 0157 OBTAINED 05/13/18 17:37 Clostridium difficile Antigen (RICHARD) - Final,negative Stool Clostridium difficile Toxin Assay - Final, negative ASSESSMENT/PLAN: 1) GI Acute diarrheal illness - pt denies any abdominal pain, benign abd exam, stool cultures negative to date - continue to observe off abx as per ID, low grade temp, Patient is leukopenic blood cultures ordered - GI and ID consult and following - BRAT diet as pt with no abd pain 2)neuro MS - cont home copaxone,receives IV steroids [id number], last 4 weeks ago - case discussed with neurologist Dr. Jeff, unlikely MS exacerbation patient will require close follow-up with neurologist as outpatient 3) cardiovascular HTN - cont home meds HLD - home pravachol changed to formulary lipitor 4) endo hypothyroid - TSH in am - cont home synthroid f/e/n hypokalemia resolved BRAT diet NS @ 42cc/hr DVT PPX - heparin deferred as expected LOS less than 48h, pt encourage to ambulate, scd ordered Dispo: pt currently requires further observation for management of her emergent condition. Visit type - Emergency Visit Emergency Visit: Yes ED Registration Date: 05/13/18 Care time: The patient presented to the Emergency Department on the above date and was hospitalized for further evaluation of their emergent condition. - New Patient This patient is new to me today: No - Critical Care Critical Care patient: No - Discharge Referral Referred to [facility] Med P.C.: No
--- NOTE | 2018-05-15 12:38 | PN ---
Progress Note (short form) - Note Progress Note: GI consultation dictated
--- NOTE | 2018-05-15 13:38 | CONS ---
DATE OF CONSULTATION: DATE OF DICTATION: 05/15/2018 HISTORY OF PRESENT ILLNESS: The patient is a very pleasant, 77-year-old female with a past medical history of hypertension, MS, hypothyroidism, who presented to the emergency room with a 4-day history of watery bowel movements. She states her symptoms began about 5 days ago, at which time she started on a "BRAT" diet. However, her symptoms worsened, she felt weak, and was seen at the urgent care center nearby the doctors instructed her to come to the emergency room for further evaluation. She states that her bowel movements are large and watery without any blood or mucus. She also had fever and chills. She denies any abdominal pain, nausea, vomiting, melena, hematochezia or weight loss. She has not had previous episodes in the past. She is from [place]. However, has not traveled outside the country. Her last dose of antibiotics for an infection was in January. Since then, she has not taken any other medications or antibiotics. She denies any culprit foods. Her last colonoscopy was in January 2017, she reports to be normal. Upper endoscopy at the same time which she reports to be normal. She had a diarrheal illness, not as severe, after eating at a salad bar a few years ago. PAST MEDICAL HISTORY: As listed in the HPI. PAST SURGICAL HISTORY: As listed in the HPI. ALLERGIES: No known drug allergies. SOCIAL HISTORY: Ex-smoker; quit over 10 years ago. Alcohol: Occasional wine. Does not use any drugs. FAMILY HISTORY: No history of GI or gynecological malignancy. She does have a brother with prostate cancer. HOME MEDICATIONS: Reviewed and include aspirin, glatiramer, levothyroxine, lisinopril, pravastatin, omeprazole, and vitamin D. REVIEW OF SYSTEMS: Negative except for pertinent positives listed in the HPI. PHYSICAL EXAMINATION: Vital signs: Temperature is 100.2, pulse 77, blood pressure 140/76, pulse oximetry 94% on room air, respiratory rate 12. General: In no acute distress, pleasant female. HEENT: Anicteric sclera. Cardiovascular: S1, S2. Regular rate and rhythm. Lungs: Bilaterally clear to auscultation. Abdomen: Soft. Nontender. Extremities: No edema. LABORATORIES: White blood cell count on admission 3.2, currently 2.7, hemoglobin and hematocrit 9.4 over 30, MCV 77, baseline hemoglobin appears to be between 10 and 11, platelet count 186, monocytes 12.3. Chemistry: Sodium 136, potassium 3.3, BUN over creatinine 6 over 0.6, glucose 107. ALT 12, AST 21, alkaline phosphatase 45. TSH 0.02. Microbiology: Her blood cultures and stool viral culture and ova and parasite culture are still pending. C difficile is negative. She has not had any abdominal imaging during this hospitalization. IMPRESSION: Acute diarrheal illness. Most likely secondary to an infectious etiology. RECOMMENDATIONS: Continue a low-reside, lactose-free diet. Follow up her stool cultures. Considering her C diff is negative, she can be tried on Imodium p.r.n. Continue acidophilus. If she were to develop any abdominal pain, would recommend imaging the abdomen. For now, hold off on antibiotics, unless her symptoms worsen or she develops hematochezia. At which time, I would recommend treating her with Levaquin and Flagyl. She will need outpatient GI followup for further management and potential colonoscopy if her symptoms do not resolve. DO YULIA FRIAS/[id number] MTDD
[2018-05-15] MEDS ORDERED: POTASSIUM CHLORIDE TABS 20 MEQ TABLET.ER (FP) PO ONE (13:45)
[2018-05-15] MEDS: BANATROL PLUS POWDER PACKET PO SCH ×2 (14:11→21:05)
[2018-05-15] MEDS ORDERED: PT OWN MED DRAWER 7, Y5N ONE (20:45)
[2018-05-15] MEDS: LISINOPRIL 5 MG TABLET (FP) PO SCH (21:04)
[2018-05-15] MEDS: ATORVASTATIN CA 10 MG TABLET (FP) PO SCH (21:04)
[2018-05-16] MEDS ORDERED: PT OWN MED DRAWER 7, Y5N ONE ×3 (06:48→21:12)
[2018-05-16] MEDS: LEVOTHYROXINE NA 112 MCG TABLET (FP) PO SCH (06:50)
[2018-05-16] MEDS: BANATROL PLUS POWDER PACKET PO SCH ×3 (06:52→22:55)
[2018-05-16 08:00] LABS: BASO % 0.3 % (0-2.0); EOS % 5.7 % (0-4.5); HEMATOCRIT 32.6 % (32.4-45.2); HEMOGLOBIN 10.4 GM/dl (10.7-15.3); LYMPH % 25.4 % (8-40); MCH 24.8 pg (25.7-33.7); MCHC 31.9 g/dl (32.0-36.0); MEAN CELL VOLUME 77.8 fl (80-96); MEAN PLT VOLUME 7.9 fl (7.5-11.1); MONO % 8.8 % (3.8-10.2); NEUT % 59.8 % (42.8-82.8); PLATELET COUNT 206 K/MM3 (134-434); RBC 4.19 M/mm3 (3.60-5.2); RDW 15.2 % (11.6-15.6); WHITE BLOOD COUNT 3.1 K/mm3 (4.0-10.8)
[2018-05-16 08:03] LABS: ANION GAP 6 MMOL/L (8-16); BLOOD UREA NITROGEN 3 mg/dl (7-18); CHLORIDE 108 mmol/L (98-107); CO2 21 mmol/L (22-28); CREATININE 0.6 mg/dl (0.6-1.3); GLUCOSE,RANDOM 134 mg/dl (74-106); MAGNESIUM 1.4 mg/dL (1.8-2.4); POTASSIUM 3.6 mmol/L (3.5-5.1); SODIUM 135 mmol/L (136-145)
[2018-05-16] MEDS ORDERED: MAGNESIUM SULFATE 2 GM in SODIUM CHLORIDE 100 ML IVPB ONE (08:26)
[2018-05-16] MEDS: CHOLECALCIFEROL (VITAMIN D3) 1,000 UNIT TABLET (FP) PO SCH (10:41)
[2018-05-16] MEDS: ASPIRIN 81 MG CHEWABLE TABLETS PO SCH (10:41)
[2018-05-16] MEDS: PANTOPRAZOLE 20 MG TABLET (FP) PO SCH ×2 (10:42→21:07)
[2018-05-16] MEDS: LACTOBACILLUS ACIDOPHILUS 1 TABLET PO SCH (10:42)
[2018-05-16] MEDS: MAGNESIUM SULFATE IN WATER 2 GM/50 ML IVPB IVPB ONE ×2 (10:42→12:05)
--- NOTE | 2018-05-16 11:20 | PN ---
Physical Exam: SUBJECTIVE: Patient seen and examined, reports one episode of incontinence of loose stools this AM, patient denies any fever or abdominal pain, patient is requesting a reqular diet. OBJECTIVE:Patient is a 77 year old female with a past medical history significant for MS and HTN, Patient was admitted for an emergency department observation for diarrhea. Vital Signs Period Temp Pulse Resp BP Sys/Morales Pulse Ox Last 24 Hr 97.9 F-99.3 F 60-78 17-18 114-151/50-58 94-99 GENERAL: patient is thin, awake, alert, and fully oriented, in no acute distress. HEAD: Normal with no signs of trauma. EYES: PERRL, extraocular movements intact, sclera anicteric, conjunctiva clear. No ptosis. ENT: Ears normal, nares patent, oropharynx clear without exudates, moist mucous membranes. NECK: Trachea midline, full range of motion, supple. LUNGS: Breath sounds equal, clear to auscultation bilaterally, no wheezes, no crackles, no accessory muscle use. HEART: Regular rate and rhythm, S1, S2 without murmur, rub or gallop. ABDOMEN: Soft, nontender, nondistended, hyperactive bowel sounds, no guarding, no rebound, no hepatosplenomegaly, no masses. EXTREMITIES: 2+ pulses, warm, well-perfused, no edema. NEUROLOGICAL: Cranial nerves II through XII grossly intact. Normal speech, gait not observed. PSYCH: Normal mood, normal affect. SKIN: Warm, dry, normal turgor, no rashes or lesions noted Laboratory Results - last 24 hr 05/13/18 05/16/18 05/16/18 16:28 07:15 07:15 WBC 3.1 L RBC 4.19 Hgb 10.4 L Hct 32.6 MCV 77.8 L MCH 24.8 L MCHC 31.9 L RDW 15.2 Plt Count 206 MPV 7.9 Absolute Neuts (auto) 1.8 Neutrophils % 59.8 Lymphocytes % 25.4 Monocytes % 8.8 Eosinophils % 5.7 H Basophils % 0.3 Sodium 135 L Potassium 3.6 Chloride 108 H Carbon Dioxide 21 L Anion Gap 6 L BUN 3 L Creatinine 0.6 Creat Clearance w eGFR > 60 Random Glucose 134 H D Calcium 8.0 L Magnesium 1.4 L Stool O & P Wet [place] & P Permanent Slide Final report Active Medications Generic Name Dose Route Start Last Admin Trade Name Jasiel PRN Reason Stop Dose Admin Aspirin 81 mg 05/14/18 10:00 05/16/18 10:41 Asa - PO 81 mg DAILY JOVANNI Administration Atorvastatin Calcium 10 mg 05/13/18 23:00 05/15/18 21:04 Lipitor - PO 10 mg HS JOVANNI Administration Cholecalciferol 2,000 unit 05/14/18 10:00 05/16/18 10:41 Vitamin D3 - PO 2,000 unit DAILY JOVANNI Administration Potassium Chloride/Dextrose/Sod Cl 20 meq in 1,000 mls @ 42 mls/hr 05/15/18 13 :21 05/15/18 14:13 D5-1/2ns+20 Meq Kcl - IV 42 mls/hr ASDIR JOVANNI Administration Lactobacillus Acidophilus 1 tab 05/14/18 10:30 05/16/18 10:42 Bacid - PO 1 tab DAILY JOVANNI Administration Levothyroxine Sodium 112 mcg 05/14/18 07:00 05/16/18 06:50 Synthroid - PO 112 mcg DAILY@0700 JOVANNI Administration Lisinopril 5 mg 05/13/18 23:00 05/15/18 21:04 Prinivil PO 5 mg HS JOVANNI Administration Loperamide HCl 2 mg 05/13/18 22:46 Imodium - PO Q4H PRN DIARRHEA Non-Formulary Medication 20 mg 05/13/18 23:00 Glatiramer Acetate [Copaxone] SQ ASDIR JOVANNI Pantoprazole Sodium 20 mg 05/13/18 23:00 05/16/18 10:42 Protonix - PO 20 mg BID JOVANNI Administration Microbiology 05/15/18 11:02 Blood Culture - Preliminary Blood - Peripheral Venous NO GROWTH OBTAINED AFTER 24 HOURS, INCUBATION TO CONTINUE FOR 4 DAYS. 05/15/18 10:50 Blood Culture - Preliminary Blood - Peripheral Venous NO GROWTH OBTAINED AFTER 24 HOURS, INCUBATION TO CONTINUE FOR 4 DAYS. 05/13/18 15:57 Gram Stain - Final Stool Salmonella/Shigella Culture - Preliminary NO ENTERIC PATHOGENS, 24 HOURS, ON PRIMARY PLATES Yersinia Culture - Preliminary NO ENTERIC PATHOGENS, 24 HOURS, ON PRIMARY PLATES Vibrio Culture - Final Escherichia coli 0157 Culture - Final NO GROWTH OF E COLI 0157 OBTAINED ASSESSMENT/PLAN: 1) GI Acute diarrheal illness - one episode of stool incontinence, benign abd exam, stool cultures negative to date, pending rota virus - continue to observe off abx as per ID, low grade temp noted, leukopenia improving, blood cultures negative to date - GI and ID consult and following - advance to regular diet 2)neuro MS - cont home copaxone,receives IV steroids [id number], last 4 weeks ago - case discussed with neurologist Dr. Jeff, unlikely MS exacerbation patient will require close follow-up with neurologist as outpatient 3) cardiovascular HTN - cont home meds HLD - home pravachol changed to formulary lipitor 4) endo hypothyroid - TSH wnl, cont home synthroid f/e/n hypokalemia resolved regular diet NS @ 42cc/hr DVT PPX - lovenox, pt encourageed to ambulate, scd ordered Dispo: pt currently requires further observation for management of her emergent condition. Visit type - Emergency Visit Emergency Visit: Yes ED Registration Date: 05/13/18 Care time: The patient presented to the Emergency Department on the above date and was hospitalized for further evaluation of their emergent condition. - New Patient This patient is new to me today: No - Critical Care Critical Care patient: No - Discharge Referral Referred to [facility] Med P.C.: No
[2018-05-16] MEDS: D5-1/2NS+20 MEQ KCL - 20 MEQ/1,000 ML INFUS.BAG IV SCH (14:39)
[2018-05-16] MEDS: LISINOPRIL 5 MG TABLET (FP) PO SCH (21:07)
[2018-05-16] MEDS: ATORVASTATIN CA 10 MG TABLET (FP) PO SCH (21:07)
[2018-05-17 05:40] VITALS: BP 151/59; PULSE 60; TEMP 99.3
[2018-05-17] MEDS ORDERED: PT OWN MED DRAWER 7, Y5N ONE (06:15)
[2018-05-17] MEDS: BANATROL PLUS POWDER PACKET PO SCH (06:55)
[2018-05-17] MEDS: LEVOTHYROXINE NA 112 MCG TABLET (FP) PO SCH (06:55)
--- NOTE | 2018-05-17 09:02 | PN ---
Physical Exam: SUBJECTIVE: Patient seen and examined. Reports no improvement in diarrhea. No abdominal pain, fevers/chills. OBJECTIVE: Vital Signs Period Temp Pulse Resp BP Sys/Morales Pulse Ox Last 24 Hr 97.7 F-99.3 F 58-74 18-18 120-151/51-72 96-99 GENERAL: The patient is awake, alert, and fully oriented, in no acute distress. HEAD: Normal with no signs of trauma. EYES: PERRL, extraocular movements intact, sclera anicteric, conjunctiva clear. No ptosis. ENT: Ears normal, nares patent, oropharynx clear without exudates, moist mucous membranes. NECK: Trachea midline, full range of motion, supple. LUNGS: Breath sounds equal, clear to auscultation bilaterally, no wheezes, no crackles, no accessory muscle use. HEART: Regular rate and rhythm, S1, S2 without murmur, rub or gallop. ABDOMEN: Soft, nontender, nondistended, normoactive bowel sounds, no guarding, no rebound, no hepatosplenomegaly, no masses. EXTREMITIES: 2+ pulses, warm, well-perfused, no edema. NEUROLOGICAL: Cranial nerves II through XII grossly intact. Normal speech, gait not observed. PSYCH: Normal mood, normal affect. SKIN: Warm, dry, normal turgor, no rashes or lesions noted Active Medications Generic Name Dose Route Start Last Admin Trade Name Freq PRN Reason Stop Dose Admin Aspirin 81 mg 05/14/18 10:00 05/16/18 10:41 Asa - PO 81 mg DAILY JOVANNI Administration Atorvastatin Calcium 10 mg 05/13/18 23:00 05/16/18 21:07 Lipitor - PO 10 mg HS JOVANNI Administration Cholecalciferol 2,000 unit 05/14/18 10:00 05/16/18 10:41 Vitamin D3 - PO 2,000 unit DAILY JOVANNI Administration Enoxaparin Sodium 40 mg 05/17/18 10:00 Lovenox - SQ DAILY JOVANNI Potassium Chloride/Dextrose/Sod Cl 20 meq in 1,000 mls @ 42 mls/hr 05/15/18 13 :21 05/16/18 14:39 D5-1/2ns+20 Meq Kcl - IV 42 mls/hr ASDIR JOVANNI Administration Lactobacillus Acidophilus 1 tab 05/14/18 10:30 05/16/18 10:42 Bacid - PO 1 tab DAILY JOVANNI Administration Levothyroxine Sodium 112 mcg 05/14/18 07:00 05/17/18 06:55 Synthroid - PO 112 mcg DAILY@0700 JOVANNI Administration Lisinopril 5 mg 05/13/18 23:00 05/16/18 21:07 Prinivil PO 5 mg HS JOVANNI Administration Loperamide HCl 2 mg 05/13/18 22:46 Imodium - PO Q4H PRN DIARRHEA Non-Formulary Medication 20 mg 05/13/18 23:00 Glatiramer Acetate [Copaxone] SQ ASDIR JOVANNI Pantoprazole Sodium 20 mg 05/13/18 23:00 05/16/18 21:07 Protonix - PO 20 mg BID JOVANNI Administration ASSESSMENT/PLAN: 1) GI Acute diarrheal illness - Blood and stool cultures negative - Off antibiotics per ID - No relief from immodium - will try Lomotil - Lactose-free, low residue diet - Per GI, no indication for imaging in absence of abdominal pain - Will need GI followup as outpatient for potential colonoscopy 2) MS MS - Cont home capaxone - Seen by neuro - 3) cardiovascular HTN - cont home meds HLD - home pravachol changed to formulary lipitor 4) endo hypothyroid - TSH wnl, cont home synthroid f/e/n hypokalemia resolved regular diet NS @ 42cc/hr DVT PPX - lovenox, pt encourageed to ambulate, scd ordered Dispo: pt currently requires further observation for management of her emergent condition. Visit type - Emergency Visit Emergency Visit: Yes ED Registration Date: 05/13/18 Care time: The patient presented to the Emergency Department on the above date and was hospitalized for further evaluation of their emergent condition. - New Patient This patient is new to me today: Yes Date on this admission: 05/17/18 - Critical Care Critical Care patient: No - Discharge Referral Referred to [facility] Med P.C.: No
[2018-05-17] MEDS ORDERED: ENOXAPARIN NA (PORCINE) 40 MG/0.4 ML DISP.SYRIN SQ SCH (10:00)
[2018-05-17] MEDS: PANTOPRAZOLE 20 MG TABLET (FP) PO SCH (10:13)
[2018-05-17] MEDS: CHOLECALCIFEROL (VITAMIN D3) 1,000 UNIT TABLET (FP) PO SCH (10:13)
[2018-05-17] MEDS: ASPIRIN 81 MG CHEWABLE TABLETS PO SCH (10:14)
[2018-05-17] MEDS: LACTOBACILLUS ACIDOPHILUS 1 TABLET PO SCH (10:14)
[2018-05-17] MEDS ORDERED: DIPHENOXYLATE 2.5/ATROPINE.025 1 COMBO TABLET PO SCH (10:45)
--- NOTE | 2018-05-17 11:54 | DS ---
Physical Exam: SUBJECTIVE: Patient seen and examined OBJECTIVE: Vital Signs Period Temp Pulse Resp BP Sys/Morales Pulse Ox Last 24 Hr 97.7 F-99.3 F 58-74 18-18 120-151/51-72 96-99 PHYSICAL EXAM GENERAL: The patient is awake, alert, and fully oriented, in no acute distress. HEAD: Normal with no signs of trauma. EYES: PERRL, extraocular movements intact, sclera anicteric, conjunctiva clear. ENT: Ears normal, nares patent, oropharynx clear without exudates, moist mucous membranes. NECK: Trachea midline, full range of motion, supple. LUNGS: Breath sounds equal, clear to auscultation bilaterally, no wheezes, no crackles, no accessory muscle use. HEART: Regular rate and rhythm, S1, S2 without murmur, rub or gallop. ABDOMEN: Soft, nontender, nondistended, normoactive bowel sounds, no guarding, no rebound, no hepatosplenomegaly, no masses. EXTREMITIES: 2+ pulses, warm, well-perfused, no edema. NEUROLOGICAL: Cranial nerves II through XII grossly intact. Normal speech, gait not observed. PSYCH: Normal mood, normal affect. SKIN: Warm, dry, normal turgor, no rashes or lesions noted. LABS HOSPITAL COURSE: Date of Admission:05/13/18 Date of Discharge: 05/17/18 Minutes to complete discharge: 30 Discharge Summary Reason For Visit: 4 DAYS DIARRHEA Current Active Problems Fecal incontinence (Acute) Condition: Stable - Instructions Diet, Activity, Other Instructions: -Continue taking Lomotil as prescribed -Take [id number] probiotics -Continue the BRAT diet until symptoms improved -Follow up with Dr. Leo of gastroenterology (referral enclose) - you may need to have a colonoscopy if symptoms continue -Return here for abdominal pain, fevers, or any other concerning symptoms Referrals: Jesus Alberto Harley MD [Staff Physician] - 1 Week (Or other primary care physician ) Sandrine Leo DO [Staff Physician] - 1 Week (Gastroenterology) Disposition: HOME - Home Medications Comprehensive Discharge Medication List: Ambulatory Orders Aspirin [ASA -] 81 mg PO DAILY 01/05/18 Glatiramer Acetate [Copaxone] 20 mg SQ ASDIR 01/05/18 Levothyroxine [Synthroid -] 112 mcg PO DAILY 01/05/18 Lisinopril [Zestril] 5 mg PO HS 01/05/18 Omeprazole 20 mg PO BID 01/05/18 Pravastatin Sodium [Pravachol (Nf)] 40 mg PO HS 01/05/18 Cholecalciferol (Vitamin D3) [Vitamin D3 -] 2,000 unit PO DAILY 05/13/18 Loperamide HCl [Loperamide] 2 mg PO PRN PRN 05/13/18 Diphenoxylate HCl/Atropine [Lomotil Tablet] 1 - 2 each PO Q6H PRN #30 tablet MDD 8 tabs 05/17/18 This patient is new to me today: Yes Date on this admission: 05/13/18 Emergency Visit: Yes ED Registration Date: 05/13/18 Care time: The patient presented to the Emergency Department on the above date and was hospitalized for further evaluation of their emergent condition. Critical Care patient: No - Discharge Referral Referred to [facility] Med P.C.: No
--- NOTE | 2018-05-17 12:16 | PN ---
Progress Note, Physician History of Present Illness: Seated in bed Reports episode of diarrhea overnight, smaller BMs this morning No abdominal pain or rectal bleeding Afebrile Remains leukopenic C diff (-) Stool c/s (-) Viral studies and O&P pending - Current Medication List Current Medications: Active Medications Aspirin (Asa -) 81 mg PO DAILY [facility] Last Admin: 05/17/18 10:14 Dose: 81 mg Atorvastatin Calcium (Lipitor -) 10 mg PO HS [facility] Last Admin: 05/16/18 21:07 Dose: 10 mg Cholecalciferol (Vitamin D3 -) 2,000 unit PO DAILY [facility] Last Admin: 05/17/18 10:13 Dose: 2,000 unit Diphenoxylate HCl/Atropine (Lomotil -) 1 combo PO Q8H [facility] Last Admin: 05/17/18 11:47 Dose: 1 combo Enoxaparin Sodium (Lovenox -) 40 mg SQ DAILY [facility] Last Admin: 05/17/18 10:14 Dose: 40 mg Potassium Chloride/Dextrose/Sod Cl (D5-1/2ns+20 Meq Kcl -) 20 meq in 1,000 mls @ 42 mls/hr IV ASDIR [facility] Last Admin: 05/16/18 14:39 Dose: 42 mls/hr Lactobacillus Acidophilus (Bacid -) 1 tab PO DAILY [facility] Last Admin: 05/17/18 10:14 Dose: 1 tab Levothyroxine Sodium (Synthroid -) 112 mcg PO DAILY@0700 [facility] Last Admin: 05/17/18 06:55 Dose: 112 mcg Lisinopril (Prinivil) 5 mg PO [facility] Last Admin: 05/16/18 21:07 Dose: 5 mg Loperamide HCl (Imodium -) 2 mg PO Q4H PRN PRN Reason: DIARRHEA Non-Formulary Medication (Glatiramer Acetate [Copaxone]) 20 mg SQ ASDIR [facility] Pantoprazole Sodium (Protonix -) 20 mg PO BID [facility] Last Admin: 05/17/18 10:13 Dose: 20 mg - Objective Vital Signs: Vital Signs Temperature 99.3 F 05/17/18 05:37 Pulse Rate 60 05/17/18 05:37 Respiratory Rate 18 05/17/18 05:37 Blood Pressure 151/59 05/17/18 05:37 O2 Sat by Pulse Oximetry (%) 96 05/17/18 05:37 Constitutional: Yes: No Distress Eyes: Yes: Conjunctiva Clear Cardiovascular: Yes: Regular Rate and Rhythm, S1, S2 Respiratory: Yes: CTA Bilaterally Gastrointestinal: Yes: Normal Bowel Sounds, Soft. No: Tenderness Edema: No Labs: CBC, BMP 05/16/18 07:15 05/16/18 07:15 Assessment/Plan Enterocolitis ? infectious etio ? viral Slowly improving MS OK for discharge off antibiotics Lomotil prn Outpatient GI follow up
== END 2018-05-17 13:05 | disposition home or self-care (01) ==
LOC: FER 14:52 → FM/S 19:43 → UNDOADMOB 19:43
PROVIDERS: ADMIT Internal Medicine; ATTEND Registered Nurse Emergency
PROC: 3E03329 Introduction of Other Anti-infective into Peripheral Vein, Percutaneous Approach (ICD-10-PCS; principal; 2018-05-13)
PROC: 3E033GC Introduction of Other Therapeutic Substance into Peripheral Vein, Percutaneous Approach (ICD-10-PCS; 2018-05-13)
PROC: 3E0337Z Introduction of Electrolytic and Water Balance Substance into Peripheral Vein, Percutaneous Approach (ICD-10-PCS; 2018-05-13)
PROC: 3E013GC Introduction of Other Therapeutic Substance into Subcutaneous Tissue, Percutaneous Approach (ICD-10-PCS; 2018-05-13)
DX: R19.7 Diarrhea, unspecified (principal); R15.9 Full incontinence of feces; I10 Essential (primary) hypertension; E03.9 Hypothyroidism, unspecified; K21.9 Gastro-esophageal reflux disease without esophagitis; G35 Multiple sclerosis; E87.6 Hypokalemia; E78.5 Hyperlipidemia, unspecified; K52.9 Noninfective gastroenteritis and colitis, unspecified; D72.819 Decreased white blood cell count, unspecified
CPT/HCPCS: 36415; 71045-TC-FY; 80048; 80053; 82438; 83735; 84100; 84302; 84443; 84999; 85025; 87040; 87045; 87046; 87177; 87205; 87209; 87324; 87425; 87449; 87798; 93005; 96372; 96374; 96375; 96376; 99283-25; G0378; J7030

== ENCOUNTER 2019-05-02 11:43 | Emergency (ER) | payer OTHER, BC ==
--- NOTE | 2019-05-02 11:49 | PDOC ---
History of Present Illness - General Chief Complaint: Chest Pain Stated Complaint: CHEST PRESSURE ~ >1 WK Time Seen by Provider: 05/02/19 11:47 - History of Present Illness Initial Comments: 05/02/19 13:10 HPI: 78 y/o F hx of MS, hypothyroid, HTN, HLD presenting with 9 days of intermittent chest pressure. She states she presented to her PCP in [place] 9 days ago with complaints of dizziness and EKG at the time showed PVCs. A holter monitor was placed and patient was told to record any symptoms. Since then she has noticed the chest pressure 3x/day with episodes lasting up to a minute at a time. Chest pressure self resolves without any intervention. There are no exacerbating factors and is non exertional in nature. She presented specifically today bexcuse she called her PCP and was told to present to the ED. She denies any chest pain, palpitations, SOB, LH, COLBERT, dizziness, abd pain, change in visions, tiniitus, diaphoresis, n/v. Of note, she reports having similar episodes about 2 years ago and was admitted for overnight obs but all workup was negative. She believes she has had epsiodes of chest pressure for the past 2 years but is only now noticing them because she has the holter monitor. PMHx: as noted above ROS: as noted SHx: Denies tobacco use; no alcohol use; no rec drugs Allergies: NKDA PCP: [phone] Dr Bria Sanchez Past History - Past Medical History Allergies/Adverse Reactions: Allergies Allergy/AdvReac Type Severity Reaction Status Date / Time No Known Allergies Allergy Verified 05/02/19 11:44 Home Medications: Ambulatory Orders Aspirin [ASA -] 81 mg PO DAILY 01/05/18 Glatiramer Acetate [Copaxone] 20 mg SQ ASDIR 01/05/18 Levothyroxine [Synthroid -] 112 mcg PO ASDIR 01/05/18 Lisinopril [Zestril] 5 mg PO HS 01/05/18 Omeprazole 20 mg PO DAILY 01/05/18 Cholecalciferol (Vitamin D3) [Vitamin D -] 2,000 unit PO DAILY 05/13/18 Atorvastatin Ca [Lipitor] 40 mg PO HS 05/02/19 Econazole Nitrate 15 gm TP BID 05/02/19 COPD: No GI Disorders: Yes (ACID REFLUX) Thyroid Disease: Yes (HYPO) - Suicide/Smoking/Psychosocial Hx Smoking History: Former smoker Have you smoked in the past 12 months: No If you are a former smoker, when did you quit?: 1970 Hx Alcohol Use: Yes Drug/Substance Use Hx: No Substance Use Type: Alcohol Review of Systems - Review of Systems Comments:: 05/02/19 13:58 GENERAL/CONSTITUTIONAL: No fever or chills. No weakness. HEAD, EYES, EARS, NOSE AND THROAT: No change in vision. No ear pain or discharge. No sore throat. CARDIOVASCULAR: No chest pain or shortness of breath RESPIRATORY: No cough, wheezing, or hemoptysis. GASTROINTESTINAL: No nausea, vomiting, diarrhea or constipation. GENITOURINARY: No dysuria, frequency, or change in urination. MUSCULOSKELETAL: No joint or muscle swelling or pain. No neck or back pain. SKIN: No rash NEUROLOGIC: No headache, vertigo, loss of consciousness, or change in strength/ sensation. ENDOCRINE: No increased thirst. No abnormal weight change HEMATOLOGIC/LYMPHATIC: No anemia, easy bleeding, or history of blood clots. ALLERGIC/IMMUNOLOGIC: No hives or skin allergy. *Physical Exam - Physical Exam Comments: 05/02/19 13:59 GENERAL: Awake, alert, and fully oriented, no acute distress HEAD: No signs of trauma, normocephalic, atraumatic EYES: EOMI, sclera anicteric, conjunctiva clear ENT: Auricles normal inspection, hearing grossly normal, nares patent, oropharynx clear without exudates. Moist mucosa NECK: Normal ROM, no lymphadenopathy LUNGS: No increased work of breathing, symmetrical chest rise, clear to auscultation bilaterally, no wheezes, crackles or rhonchi HEART: Regular rate and rhythm, normal S1 and S2, no murmurs, peripheral pulses 2+ and equal bilaterally; holter monitor in place ABDOMEN: Soft, nontender, nondistended, normoactive bowel sounds. No guarding, no rebound. No masses EXTREMITIES: Normal inspection, Normal range of motion, no edema. No clubbing or cyanosis. NEUROLOGICAL: Cranial nerves II through XII grossly intact. Normal speech, normal gait, no focal sensorimotor deficits SKIN: Warm, Dry, normal turgor, no rashes or lesions noted ED Treatment Course - LABORATORY CBC & Chemistry Diagram: 05/02/19 12:00 05/02/19 12:00 Medical Decision Making - Medical Decision Making 05/02/19 14:00 78 y/o F hx of MS, hypothyroid, HTN, HLD presenting with 9 days of intermittent chest pressure without any other associations. Vitals BP 131/58 HR 70 o@ sats 100%. PE unremarkable. Although symptoms are atypical, given age and history will rule out ACS. Will also evaluate for anemia, cardiac dysarrythmias, hypoglycemia, electrolyte abnml, metabolic and toxic derangements, acid-base disturbances -cbc, cmp, trop -EKG, cxr 05/02/19 14:03 labs unremarkable; trop negative EKG: sinus rhythm, absent IRA, STD. 1st degree block present with prolonged VA CXR: with no acute pathology 05/02/19 14:[address] Sanchez PCP for anciallary hx 05/02/19 16:[address] Sanchez patient presentation and given clinical stability and chest pressure without any other associations, feels comfortable with DC home with close followup pending negative 2nd trop; patient has appts next week for routine chest Ct and will see Dr Sanchez at that time 05/02/19 17:18 2nd trop negative discussed with patient results as well as return pcxn; patient comfortable with instructions and will be DCd home with close followup for PCP *DC/Admit/Observation/Transfer Diagnosis at time of Disposition: Left chest pressure - Discharge Dispostion Disposition: HOME Condition at time of disposition: Stable Decision to Admit order: No - Referrals - Patient Instructions Printed Discharge Instructions: DI for Atypical Chest Pain Additional Instructions: Additional Instructions: Please return to the emergency department with any new or worsening symptoms or concerns including severe chest pain, difficulty breathing, decreased exercise tolerance, increased sweating, fainting. Please follow up with your primary care physician as instructed - Post Discharge Activity
[2019-05-02 12:04] VITALS: TEMP 98.3; BMI 20.5
--- NOTE | 2019-05-02 12:17 | PDOC ---
Attending Attestation - Resident Resident Name: Millie Marie - ED Attending Attestation I have performed the following: I have examined & evaluated the patient, The case was reviewed & discussed with the resident, I agree w/resident's findings & plan, Exceptions are as noted - HPI HPI: 05/02/19 12:14 78y F hx of MS, hypothryodism, htn, hl, rpesents with approx 1 week of intermittent chest pressure, occurring approx 3x a day, lasting approx 1 min at a time under her L breath without radiation. Pt went to her MD who placed a holter monitor for evaluation of lightheadedness. Pt had discussed with her PMD who referred her to the ER for evaluation. Denies sob, palpitations, lightheadedness, abd pain, n/v, diaphoresis, vision changes, focal neuro complaints. Pain is non exertional in nature. social hx: denies smoking, social etoh, denies recreational drugs family hx: father had CAD, unclear age of onset pt had stress within the past year and was negative per pg PMD: Dr. Sanchez in [place] - Physicial Exam PE: 05/02/19 14:08 GENERAL: The patient is awake, alert, and fully oriented, Nontoxic - in no acute distress. HEAD: Normocephalic, atraumatic. EYES: extraocular movements intact, sclera anicteric, conjunctiva clear. ENT: Normal voice, Moist mucous membranes. NECK: Normal range of motion, supple LUNGS: Breath sounds equal, clear to auscultation bilaterally. No wheezes, no rhonchi, no rales. HEART: Regular rate and rhythm, normal S1 and S2 without murmur, rub or gallop. implantable monitor in L chest, cdi ABDOMEN: Soft, nontender, No guarding, no rebound. No CVA tenderness EXTREMITIES: Normal range of motion, trace edema in LE NEUROLOGICAL: No facial assymetry, Normal speech, PSYCH: Normal mood, normal affect. SKIN: Warm, Dry, normal turgor, - Medical Decision Making 05/02/19 14:08 78y F hx of MS htn, hl presents with intermittent chest pressure lasting <1 min scott tis non radiatng without associated n/v, sob, diaphoresis, palpitaions, dizziness trop neg x 1 consider acs, but somewhat atypical will obtain another trop, will dw PMD regarding dispo as pt had recent [place] workup including neg stress 05/02/19 19:00 trop neg x 2 pt asymptmoatic case dw PMD - will have pt fu with PMD as outpqatient with strict return precuations for any further chest pain Heart Score/ECG Review - ECG Impressions Comment:: 05/02/19 14:10 Twelve-lead EKG was performed and reviewed by me. There is normal sinus rhythm with a normal rate. rate of 67 1st degree av block abnormal r wave progression
[2019-05-02 12:58] LABS: BASO % 1.1 % (0-2.0); EOS % 4.5 % (0-4.5); HEMATOCRIT 33.5 % (32.4-45.2); HEMOGLOBIN 10.8 GM/dl (10.7-15.3); LYMPH % 38.5 % (8-40); MCH 24.8 pg (25.7-33.7); MCHC 32.1 g/dl (32.0-36.0); MEAN CELL VOLUME 77.3 fl (80-96); MEAN PLT VOLUME 8.2 fl (7.5-11.1); MONO % 10.4 % (3.8-10.2); NEUT % 45.5 % (42.8-82.8); PLATELET COUNT 192 K/MM3 (134-434); RBC 4.33 M/mm3 (3.60-5.2); RDW 15.7 % (11.6-15.6); WHITE BLOOD COUNT 3.9 K/mm3 (4.0-10.8)
[2019-05-02 13:04] LABS: ALBUMIN 3.6 g/dl (3.4-5.0); BILIRUBIN,TOTAL 0.6 mg/dl (0.2-1); CALCIUM 8.8 mg/dl (8.5-10); CREATININE 0.6 mg/dl (0.55-1.3)
[2019-05-02 17:52] VITALS: BP 126/74; PULSE 73
--- NOTE | 2019-05-03 11:34 | EKG ---
Test Reason : Blood Pressure : / mmHG Vent. Rate : 067 BPM Atrial Rate : 067 BPM P-R Int : 234 ms QRS Dur : 082 ms QT Int : 418 ms P-R-T Axes : 082 -24 043 degrees QTc Int : 441 ms SINUS RHYTHM WITH 1ST DEGREE A-V BLOCK WITH PREMATURE SUPRAVENTRICULAR COMPLEXES CANNOT RULE OUT ANTERIOR INFARCT (CITED ON OR BEFORE 13-MAY-2018) ABNORMAL ECG WHEN COMPARED WITH ECG OF 13-MAY-2018 20:48, PREMATURE SUPRAVENTRICULAR COMPLEXES ARE NOW PRESENT T WAVE INVERSION LESS EVIDENT IN ANTERIOR LEADS Confirmed by LUISITO FALLON MD ([id number]) on 05/03/2019 11:34:14 AM Referred By: MARTIN HINTON Confirmed By:LUISITO FALLON MD
== END 2019-05-02 17:20 | disposition home or self-care (01) ==
LOC: FER 11:43
DX: R07.89 Other chest pain (principal); E03.9 Hypothyroidism, unspecified; I10 Essential (primary) hypertension; E78.5 Hyperlipidemia, unspecified; G35 Multiple sclerosis; Z87.891 Personal history of nicotine dependence; K21.9 Gastro-esophageal reflux disease without esophagitis
CPT/HCPCS: 36415; 71045-TC-FY; 80053; 82550; 84484; 85025; 93005; 99285-25

== ENCOUNTER 2021-07-29 11:49 | Emergency (ER) | payer OTHER, BC ==
[2021-07-29] MEDS ORDERED: LIDOCAINE 5% TOPICAL PATCH TP ONE (12:05)
[2021-07-29] MEDS ORDERED: ACETAMINOPHEN 500 MG TABLET (FP) PO ONE (12:05)
[2021-07-29 12:08] VITALS: BP 148/86; PULSE 95; TEMP 98.6; BMI 20.3
[2021-07-29] MEDS ORDERED: ACETAMINOPHEN 500 MG TABLET (FP) ONE (12:10)
[2021-07-29] MEDS ORDERED: LIDOCAINE 5% TOPICAL PATCH ONE (12:10)
[2021-07-29] MEDS ORDERED: oxyCODONE HCL 5 MG TABLET PO ONE (12:52)
[2021-07-29] MEDS ORDERED: oxyCODONE HCL 5 MG TABLET ONE (12:54)
[2021-07-29] MEDS ORDERED: LIDOCAINE PATCH REMOVAL MC SCH (22:00)
== END 2021-07-29 13:17 | disposition home or self-care (01) ==
LOC: FER 11:49
DX: S22.41XA Multiple fractures of ribs, right side, initial encounter for closed fracture (principal); W10.9XXA Fall (on) (from) unspecified stairs and steps, initial encounter; Y93.01 Activity, walking, marching and hiking
CPT/HCPCS: 71111-TC-FY; 99283-25

== ENCOUNTER 2021-08-06 09:33 | Emergency (ER) | payer OTHER, BC ==
[2021-08-06 09:50] VITALS: BP 124/63; PULSE 80; TEMP 98.1; BMI 20.7
== END 2021-08-06 10:38 | disposition home or self-care (01) ==
LOC: FER 09:33
DX: S60.221A Contusion of right hand, initial encounter (principal); W01.0XXA Fall on same level from slipping, tripping and stumbling without subsequent striking against object, initial encounter
CPT/HCPCS: 73130-TC-RT-FY; 99283-25

== ENCOUNTER 2021-08-22 09:08 | Emergency (ER) | payer OTHER, BC ==
[2021-08-22 09:29] VITALS: BP 122/65; PULSE 98; TEMP 97.5; BMI 20.7
[2021-08-22 09:49] LABS: EPITHELIAL CELLS FEW /hpf
== END 2021-08-22 10:25 | disposition home or self-care (01) ==
LOC: FER 09:08
DX: N30.00 Acute cystitis without hematuria (principal)
CPT/HCPCS: 81003; 81015; 87086; 87186; 99283-25

== ENCOUNTER 2021-09-14 09:45 | Observation (INO) | payer OTHER, BC ==
[2021-09-14] MEDS ORDERED: ACETAMINOPHEN 325 MG TABLET (FP) PO ONE (09:50)
[2021-09-14] MEDS ORDERED: LIDOCAINE 5% TOPICAL PATCH TP ONE (09:51)
[2021-09-14 09:57] VITALS: BMI 20.7
[2021-09-14] MEDS ORDERED: LIDOCAINE 5% TOPICAL PATCH ONE (10:02)
[2021-09-14 11:19] LABS: EPITHELIAL CELLS FEW /hpf
[2021-09-14 16:27] LABS: ALBUMIN 4.1 g/dl (3.4-5.0); BILIRUBIN,TOTAL 0.9 mg/dl (0.2-1); CALCIUM 9.1 mg/dl (8.5-10); CREATININE 0.8 mg/dl (0.55-1.3); TOT PROT 6.6 g/dl (6.4-8.2)
[2021-09-14 18:55] LABS: EOS % 0.8 % (0-4.5); HEMATOCRIT 34.6 % (32.4-45.2); HEMOGLOBIN 11.5 GM/dL (10.7-15.3); LYMPH % 23.5 % (8-40); MCH 26.7 pg (25.7-33.7); MCHC 33.2 g/dl (32.0-36.0); MEAN CELL VOLUME 80.5 fl (80-96); MEAN PLT VOLUME 7.7 fl (7.5-11.1); MONO % 8.7 % (3.8-10.2); PLATELET COUNT 208 10^3/uL (134-434); RBC 4.29 M/mm3 (3.60-5.2); RDW 17.5 % (11.6-15.6); WHITE BLOOD COUNT 9.5 K/mm3 (4.0-10.0)
[2021-09-14] MEDS: oxyCODONE HCL 5 MG TABLET PO PRN (21:11)
[2021-09-14] MEDS ORDERED: LIDOCAINE PATCH REMOVAL MC SCH (22:00)
[2021-09-15] MEDS ORDERED: ACETAMINOPHEN 325 MG TABLET (FP) PO ONE (01:30)
[2021-09-15] MEDS: oxyCODONE HCL 5 MG TABLET PO PRN ×3 (01:33→10:07)
[2021-09-15] MEDS ORDERED: POLYETHYLENE GLYCOL (HEALTHYLAX) 3350 17 GM PACKET PO PRN (01:37)
[2021-09-15] MEDS ORDERED: ACETAMINOPHEN 325 MG TABLET (FP) PO PRN (06:00)
[2021-09-15 06:16] VITALS: BP 126/35; PULSE 67; TEMP 98.3
[2021-09-15] MEDS ORDERED: LEVOTHYROXINE NA 112 MCG TABLET (FP) PO SCH (07:00)
[2021-09-15] MEDS ORDERED: morphine SULFATE 4 MG/ML VIAL IVPUSH PRN (08:53)
[2021-09-15] MEDS ORDERED: DOCUSATE SODIUM 100 MG CAPSULE (FP) PO SCH (10:00)
[2021-09-15] MEDS ORDERED: HYDROCHLOROTHIAZIDE 12.5 MG CAPSULE (FP) PO SCH (10:00)
[2021-09-15] MEDS ORDERED: PANTOPRAZOLE 40 MG TABLET PO SCH (10:00)
[2021-09-15] MEDS ORDERED: metoPROLOL SUCCINATE 25 MG TAB.SR.24H (FP) PO SCH (10:00)
[2021-09-15] MEDS ORDERED: TIOTROPIUM BROMIDE 2.5 MCG (SPIRIVA) RESPIMAT INHALER IH SCH (10:00)
[2021-09-15] MEDS ORDERED: LIDOCAINE 5% TOPICAL PATCH TP SCH (10:00)
[2021-09-15] MEDS ORDERED: ATORVASTATIN CA 40 MG TABLET (FP) PO SCH (22:00)
[2021-09-15] MEDS ORDERED: LIDOCAINE PATCH REMOVAL MC SCH (22:00)
[2021-09-15] MEDS ORDERED: LISINOPRIL 5 MG TABLET PO SCH (22:00)
== END 2021-09-15 13:13 | disposition left against medical advice (07) ==
LOC: FER 09:45 → INTOOBSV 19:44 → FM/S 19:44
PROVIDERS: ADMIT Internal Medicine; ATTEND Nurse Practitioner Acute Care
DX: J93.83 Other pneumothorax (principal); G35 Multiple sclerosis; E78.5 Hyperlipidemia, unspecified; I10 Essential (primary) hypertension; E03.9 Hypothyroidism, unspecified; Z86.79 Personal history of other diseases of the circulatory system; R52 Pain, unspecified; Z86.39 Personal history of other endocrine, nutritional and metabolic disease
CPT/HCPCS: 36415; 71045-TC-FY; 71046-TC-FY; 74176-TC; 80053; 81003; 81015; 85025; 87086; 87186; 94010; 99285-25; C9803; G0378; U0003; U0005

== ENCOUNTER 2021-09-21 12:23 | Emergency (ER) | payer OTHER, BC ==
[2021-09-21 12:36] VITALS: BP 151/64; PULSE 86; TEMP 97.6; BMI 20.3
[2021-09-21] MEDS ORDERED: IBUPROFEN 400 MG TABLET (FP) PO ONE ×2 (14:53→15:00)
[2021-09-21] MEDS ORDERED: oxyCODONE HCL 5 MG TABLET PO ONE (14:53)
[2021-09-21] MEDS ORDERED: oxyCODONE HCL 5 MG TABLET ONE (15:00)
== END 2021-09-21 15:22 | disposition home or self-care (01) ==
LOC: FER 12:23
DX: S22.41XA Multiple fractures of ribs, right side, initial encounter for closed fracture (principal)
CPT/HCPCS: 71250-TC; 99284-25

== ENCOUNTER 2022-11-22 09:17 | Day surgery (SDC) | payer OTHER, BC ==
[2022-11-17 16:35] VITALS: BMI 19.1
[2022-11-22] MEDS ORDERED: LIDOCAINE HCL 2% (20ML MULTI-DOSE VIAL) ONE (09:24)
[2022-11-22] MEDS ORDERED: SODIUM BICARBONATE 8.4% 50 MEQ/50 ML VIAL ONE (11:04)
[2022-11-22] MEDS ORDERED: LIDOCAINE 1%-EPI 1:100,000 30 ML MDV IJ ONE (11:05)
[2022-11-22] MEDS ORDERED: FENTANYL CITRATE/PF 50 MCG/ML VIAL ONE (11:17)
[2022-11-22] MEDS ORDERED: MIDAZOLAM HCL 2 MG/2 ML SINGLE DOSE VIAL ONE ×3 (11:17→12:44)
[2022-11-22] MEDS ORDERED: DEXAMETHASONE SOD PHOSPHATE 4 MG/1 ML VIAL ONE (11:51)
[2022-11-22] MEDS ORDERED: ONDANSETRON 4 MG/2 ML VIAL ONE (11:51)
[2022-11-22] MEDS ORDERED: BUPIVACAINE HCL/PF 0.25% (2.5MG/ML) 10 ML VIAL IJ ONE (13:09)
[2022-11-22 15:17] VITALS: RESP 17; TEMP 98
[2022-11-22 15:24] VITALS: BP 126/60; PULSE 65
== END 2022-11-22 14:20 | disposition home or self-care (01) ==
LOC: FASU 09:17
PROVIDERS: ATTEND Orthopaedic Surgery Hand Surgery
PROC: 0LS70ZZ Reposition Right Hand Tendon, Open Approach (ICD-10-PCS; 2022-11-22)
PROC: 0LN70ZZ Release Right Hand Tendon, Open Approach (ICD-10-PCS; principal; 2022-11-22 12:00)
DX: M66.241 Spontaneous rupture of extensor tendons, right hand (principal)

== ENCOUNTER 2023-04-18 14:54 | Inpatient (IN) | payer OTHER, BC ==
[2023-04-18] MEDS ORDERED: LACTATED RINGERS SOLUTION 1000 ML INFUS.BAG IV ONE (15:03)
[2023-04-18 15:25] VITALS: RESP 18
[2023-04-18 16:53] LABS: INR 1.15 (0.83-1.09); PROTHROMBIN TIME (PATIENT) 13.3 SEC (9.7-13.0)
[2023-04-18 16:54] LABS: HEMATOCRIT 33.2 % (32.4-45.2); HEMOGLOBIN 10.9 G/dL (10.7-15.3); MCH 26.3 pg (25.7-33.7); MCHC 32.7 g/dl (32.0-36.0); MEAN CELL VOLUME 80.4 fl (80-96); MEAN PLT VOLUME 8.5 fl (7.5-11.1); RBC 4.13 10^6/uL (3.60-5.2); RDW 18.5 % (11.6-15.6); WHITE BLOOD COUNT 9.6 10^3/uL (4.0-10.8)
[2023-04-18 16:56] LABS: ACTIVATED PTT 17.8 SECONDS (25.2-36.5)
[2023-04-18 17:03] LABS: ALBUMIN 3.6 g/dl (3.4-5.0); BLOOD UREA NITROGEN 47.3 mg/dl (7-18); CALCIUM 8.8 mg/dl (8.5-10.1); CREATININE 0.9 mg/dl (0.6-1.3); SGOT/AST 59.3 U/L (15-37); SGPT/ALT 52.4 U/L (7-52); TOT PROT 6.4 g/dl (6.4-8.2)
[2023-04-18 17:08] LABS: POTASSIUM 3.7 mmol/L (3.5-5.1)
[2023-04-18 19:08] LABS: PLATELET ESTIMATE ADEQUATE
[2023-04-18 19:09] LABS: N-TERMINAL BNP 870.6 pg/ml (5-450)
[2023-04-18 20:41] LABS: BLOOD UREA NITROGEN 47.6 mg/dl (7-18); CREATININE 0.8 mg/dl (0.6-1.3); POTASSIUM 3.3 mmol/L (3.5-5.1)
[2023-04-18] MEDS ORDERED: POTASSIUM CHLORIDE TABS 20 MEQ TABLET.ER (FP) PO ONE ×2 (20:48→21:03)
[2023-04-18 21:09] LABS: EPITHELIAL CELLS FEW /hpf
[2023-04-18] MEDS ORDERED: SODIUM CHLORIDE 1,000 ML IV SCH (21:15)
[2023-04-18 23:00] VITALS: BMI 19.7
[2023-04-19] MEDS: LEVOTHYROXINE NA 112 MCG TABLET (FP) PO SCH (07:46)
[2023-04-19 09:11] LABS: ALBUMIN 2.9 g/dl (3.4-5.0); BILIRUBIN,TOTAL 0.6 mg/dl (0.2-1); BLOOD UREA NITROGEN 35.3 mg/dl (7-18); CALCIUM 7.6 mg/dl (8.5-10.1); CREATININE 0.7 mg/dl (0.6-1.3); MAGNESIUM 1.7 mg/dL (1.8-2.4); POTASSIUM 3.8 mmol/L (3.5-5.1); SGOT/AST 41.9 U/L (15-37); SGPT/ALT 40.9 U/L (7-52)
[2023-04-19] MEDS: CEFTRIAXONE 1 GM in DEXTROSE 5%-WATER - 50 ML IVPB SCH (09:24)
[2023-04-19] MEDS: metoPROLOL SUCCINATE 25 MG TAB.SR.24H (FP) PO SCH (09:24)
[2023-04-19] MEDS: LISINOPRIL 5 MG TABLET PO SCH (09:26)
[2023-04-19] MEDS: UMECLIDINIUM/VILANTEROL (ANORO) 62.5/25 MCG INHALER IH SCH (09:38)
[2023-04-19] MEDS ORDERED: BUDESONIDE/FORMETEROL FUMARATE 160/4.5 mcg INHALER IH SCH (10:00)
[2023-04-19] MEDS ORDERED: MAGNESIUM SULF 50% (8.12 MEQ/2 ML-1 GM VIAL) IVPB ONE (17:17)
[2023-04-19] MEDS: HEPARIN NA (PORCINE) 5,000 UNITS/ML 1ML VIAL SQ SCH (22:23)
[2023-04-20] MEDS: LEVOTHYROXINE NA 112 MCG TABLET (FP) PO SCH (06:23)
[2023-04-20] MEDS: HEPARIN NA (PORCINE) 5,000 UNITS/ML 1ML VIAL SQ SCH ×3 (06:23→21:39)
[2023-04-20] MEDS: LISINOPRIL 5 MG TABLET PO SCH (09:33)
[2023-04-20] MEDS: CEFTRIAXONE 1 GM in DEXTROSE 5%-WATER - 50 ML IVPB SCH ×2 (09:33→10:31)
[2023-04-20] MEDS: metoPROLOL SUCCINATE 25 MG TAB.SR.24H (FP) PO SCH (09:33)
[2023-04-20] MEDS: UMECLIDINIUM/VILANTEROL (ANORO) 62.5/25 MCG INHALER IH SCH (09:34)
[2023-04-20 10:33] LABS: ALBUMIN 2.9 g/dl (3.4-5.0); BLOOD UREA NITROGEN 15.6 mg/dl (7-18); CALCIUM 7.8 mg/dl (8.5-10.1); CREATININE 0.7 mg/dl (0.6-1.3); POTASSIUM 3.5 mmol/L (3.5-5.1); SGOT/AST 31.2 U/L (15-37); TOT PROT 5.1 g/dl (6.4-8.2)
[2023-04-20 11:56] LABS: BILIRUBIN,TOTAL 0.4 mg/dL (0.2-1)
[2023-04-20 11:59] LABS: HEMATOCRIT 28.5 % (32.4-45.2); HEMOGLOBIN 9.4 GM/dL (10.7-15.3); MCH 25.6 pg (25.7-33.7); MCHC 32.9 g/dl (32.0-36.0); MEAN CELL VOLUME 77.9 fl (80-96); MEAN PLT VOLUME 7.5 fl (7.5-11.1); PLATELET COUNT 379 10^3/uL (134-434); RBC 3.65 M/mm3 (3.60-5.2); RDW 17.3 % (11.6-15.6); WHITE BLOOD COUNT 8.3 K/mm3 (4.0-10.0)
[2023-04-20 13:08] LABS: ANISOCYTOSIS 2+; MACROCYTOSIS 0; OVALOCYTE 2+
[2023-04-20] MEDS ORDERED: REFRIGERATED ANITBIOTICS ONE ×4 (13:10→23:06)
[2023-04-20] MEDS: VANCOMYCIN ORAL SOLUTION 125 MG/2.5 ML PO SCH ×3 (13:35→23:06)
[2023-04-21] MEDS ORDERED: REFRIGERATED ANITBIOTICS ONE ×2 (06:05→10:46)
[2023-04-21] MEDS: HEPARIN NA (PORCINE) 5,000 UNITS/ML 1ML VIAL SQ SCH (06:06)
[2023-04-21] MEDS: VANCOMYCIN ORAL SOLUTION 125 MG/2.5 ML PO SCH (06:06)
[2023-04-21 09:09] LABS: ALBUMIN 3.1 g/dl (3.4-5.0); BLOOD UREA NITROGEN 16.8 mg/dl (7-18); CALCIUM 8.7 mg/dl (8.5-10.1); CREATININE 0.6 mg/dl (0.6-1.3); POTASSIUM 4.2 mmol/L (3.5-5.1); SGOT/AST 28.6 U/L (15-37); SGPT/ALT 38.3 U/L (7-52); TOT PROT 5.4 g/dl (6.4-8.2)
[2023-04-21] MEDS: metoPROLOL SUCCINATE 25 MG TAB.SR.24H (FP) PO SCH (09:27)
[2023-04-21] MEDS: CEFTRIAXONE 1 GM in DEXTROSE 5%-WATER - 50 ML IVPB SCH (09:27)
[2023-04-21] MEDS: LISINOPRIL 5 MG TABLET PO SCH (09:27)
[2023-04-21] MEDS: UMECLIDINIUM/VILANTEROL (ANORO) 62.5/25 MCG INHALER IH SCH (09:31)
[2023-04-21 09:42] VITALS: BP 153/59; PULSE 65; TEMP 97.8
[2023-04-21 10:08] LABS: HEMATOCRIT 32.2 % (32.4-45.2); HEMOGLOBIN 10.6 GM/dL (10.7-15.3); MCH 25.8 pg (25.7-33.7); MCHC 32.7 g/dl (32.0-36.0); MEAN CELL VOLUME 78.7 fl (80-96); MEAN PLT VOLUME 7.7 fl (7.5-11.1); PLATELET COUNT 394 10^3/uL (134-434); RDW 17.2 % (11.6-15.6); WHITE BLOOD COUNT 8.4 K/mm3 (4.0-10.0)
[2023-04-21 10:11] LABS: BILIRUBIN,TOTAL 0.2 mg/dL (0.2-1)
[2023-04-21 11:29] LABS: ANISOCYTOSIS 0; HELMET CELLS 0; HOWELL-JOLLY BODIES 0; MACROCYTOSIS 0; OVALOCYTE 0; ROULEAU 0; SICKELED CELLS 0; TARGET CELLS 0; TEAR DROP CELLS 0; TOXIC GRANULATION 0
== END 2023-04-21 12:34 | disposition left against medical advice (07) | DRG 689 ==
LOC: FER 14:54 → FM/S 22:20 → OBSVTOIN 23:20
PROVIDERS: ADMIT Internal Medicine
DX: N39.0 Urinary tract infection, site not specified (principal); E43 Unspecified severe protein-calorie malnutrition; E87.1 Hypo-osmolality and hyponatremia; Z68.1 Body mass index [BMI] 19.9 or less, adult; G35 Multiple sclerosis; E78.5 Hyperlipidemia, unspecified; I10 Essential (primary) hypertension; E03.9 Hypothyroidism, unspecified; E86.0 Dehydration; B96.1 Klebsiella pneumoniae [K. pneumoniae] as the cause of diseases classified elsewhere; B95.1 Streptococcus, group B, as the cause of diseases classified elsewhere; K21.9 Gastro-esophageal reflux disease without esophagitis; M85.88 Other specified disorders of bone density and structure, other site; R77.8 Other specified abnormalities of plasma proteins; E83.42 Hypomagnesemia; R55 Syncope and collapse; R74.8 Abnormal levels of other serum enzymes; D64.9 Anemia, unspecified; I44.0 Atrioventricular block, first degree
CPT/HCPCS: 0241U-QW; 36415; 70450-TC; 71045-TC-FY; 71250-TC; 76705-TC; 80048; 80053; 81003; 81015; 83735; 83880; 84443; 84484; 85025; 85027; 85610; 85730; 86708; 87077; 87086; 87186; 87899; 93005; 93306-TC; 97116-GP; 97163-GP; 99285-25; G0378; J1644

== ENCOUNTER 2023-05-01 09:59 | Emergency (ER) | payer OTHER, BC ==
[2023-05-01 10:22] VITALS: BP 140/64; PULSE 87; RESP 20; TEMP 98.7; BMI 18.9
[2023-05-01] MEDS ORDERED: SODIUM CHLORIDE 0.9% 1000 ML INFUS.BAG IV ONE (10:23)
[2023-05-01] MEDS ORDERED: ACETAMINOPHEN 325 MG TABLET (FP) PO ONE (10:31)
[2023-05-01 10:59] LABS: EPITHELIAL CELLS FEW /hpf
[2023-05-01] MEDS ORDERED: ACETAMINOPHEN 325 MG TABLET (FP) ONE (11:59)
[2023-05-01 12:04] LABS: HEMATOCRIT 32.8 % (32.4-45.2); HEMOGLOBIN 10.5 G/dL (10.7-15.3); MCH 26.4 pg (25.7-33.7); MCHC 32.1 g/dl (32.0-36.0); MEAN CELL VOLUME 82.1 fl (80-96); PLATELET COUNT 310.3 10^3/uL (134-434); RDW 17.9 % (11.6-15.6); WHITE BLOOD COUNT 8.9 10^3/uL (4.0-10.8)
[2023-05-01 12:11] LABS: ALBUMIN 3.7 g/dl (3.4-5.0); BLOOD UREA NITROGEN 24.3 mg/dl (7-18); CALCIUM 8.9 mg/dl (8.5-10.1); CREATININE 0.7 mg/dl (0.6-1.3); POTASSIUM 3.8 mmol/L (3.5-5.1); SGOT/AST 15.1 U/L (15-37); SGPT/ALT 19.4 U/L (7-52); TOT PROT 5.8 g/dl (6.4-8.2)
[2023-05-01 15:02] LABS: BILIRUBIN,TOTAL 0.2 mg/dL (0.2-1)
[2023-05-01 15:32] LABS: ANISOCYTOSIS 1+; PLATELET ESTIMATE ADEQUATE
== END 2023-05-01 12:51 | disposition home or self-care (01) ==
LOC: FER 09:59
DX: R30.0 Dysuria (principal); R53.1 Weakness; R68.83 Chills (without fever)
CPT/HCPCS: 36415; 80053; 81003; 81015; 85027; 87086; 87186; 99284-25

== ENCOUNTER 2024-06-05 10:57 | Emergency (ER) | payer OTHER, BC ==
[2024-06-05 11:22] VITALS: BP 137/57; PULSE 80; RESP 17; TEMP 98.4; BMI 20.3
[2024-06-05] MEDS: SODIUM CHLORIDE 1,000 ML IV STA (11:50)
[2024-06-05 12:51] LABS: ALBUMIN 3.9 g/dl (3.4-5.0); BILIRUBIN,TOTAL 0.5 mg/dl (0.2-1); CALCIUM 9.3 mg/dl (8.5-10.1); CREATININE 0.7 mg/dl (0.6-1.3); MAGNESIUM 1.5 mg/dL (1.8-2.4); POTASSIUM 4.1 mmol/L (3.5-5.1); TOT PROT 6.1 g/dl (6.4-8.2)
[2024-06-05 12:53] LABS: VENOUS BASE EXCESS 0.6 mmol/L (-2-2); VENOUS O2 SATURATION 20.1 % (70-80); VENOUS PCO2 54.9 mmHg (38-52); VENOUS PH 7.318 (7.310-7.410)
[2024-06-05] MEDS: MAGNESIUM SULF 50% (8.12 MEQ/2 ML-1 GM VIAL) IVPB ONE (13:29)
[2024-06-05] MEDS ORDERED: MAGNESIUM SULFATE IN WATER 2 GM/50 ML IVPB IVPB ONE (13:31)
[2024-06-05 13:40] LABS: HEMATOCRIT 35.7 % (32.4-45.2); HEMOGLOBIN 11.4 G/dL (10.7-15.3); MEAN CELL VOLUME 84.3 fl (80-96); MEAN PLT VOLUME 8.3 fl (7.5-11.1); PLATELET COUNT 304.6 10^3/uL (134-434); RBC 4.23 10^6/uL (3.60-5.2); WHITE BLOOD COUNT 9.8 10^3/uL (4.0-10.8)
[2024-06-05 14:03] LABS: ANISOCYTOSIS 2+; OVALOCYTE 2+; TEAR DROP CELLS 1+
[2024-06-05 14:04] LABS: PLATELET ESTIMATE ADEQUATE
== END 2024-06-05 14:38 | disposition home or self-care (01) ==
LOC: FER 10:57
PROC: 3E033GC Introduction of Other Therapeutic Substance into Peripheral Vein, Percutaneous Approach (ICD-10-PCS; principal; 2024-06-05)
PROC: 3E0337Z Introduction of Electrolytic and Water Balance Substance into Peripheral Vein, Percutaneous Approach (ICD-10-PCS; 2024-06-05)
DX: R19.7 Diarrhea, unspecified (principal)
CPT/HCPCS: 36415; 80053; 81003; 82803; 83735; 85027; 87045; 87046; 87086; 87186; 87209; 99284-25

== ENCOUNTER 2024-07-07 10:23 | Observation (INO) | payer OTHER, BC ==
[2024-07-07 10:30] VITALS: RESP 18
[2024-07-07 11:32] LABS: HEMATOCRIT 37.3 % (32.4-45.2); HEMOGLOBIN 12.2 G/dL (10.7-15.3); MCH 26.7 pg (25.7-33.7); MCHC 32.6 g/dl (32.0-36.0); MEAN CELL VOLUME 81.8 fl (80-96); MEAN PLT VOLUME 8.5 fl (7.5-11.1); PLATELET COUNT 274.2 10^3/uL (134-434); RBC 4.56 10^6/uL (3.60-5.2); RDW 15.8 % (11.6-15.6); WHITE BLOOD COUNT 7.3 10^3/uL (4.0-10.8)
[2024-07-07 11:41] LABS: ALBUMIN 4.2 g/dl (3.4-5.0); ALK PHOS 41 U/L (45-117); ANION GAP 11 mmol/L (4-13); BILIRUBIN,TOTAL 0.7 mg/dl (0.2-1); CALCIUM 9.7 mg/dl (8.5-10.1); CHLORIDE 96 mmol/L (98-107); CO2 28 mmol/L (21-32); CREATININE 0.9 mg/dl (0.6-1.3); GLUCOSE,RANDOM 111 mg/dl (74-106); MAGNESIUM 1.6 mg/dL (1.8-2.4); SGOT/AST 12 U/L (15-37); SGPT/ALT 9 U/L (7-52); SODIUM 135 mmol/L (136-145); TOT PROT 6.3 g/dl (6.4-8.2)
[2024-07-07 11:47] LABS: POTASSIUM 2.6 mmol/L (3.5-5.1)
[2024-07-07] MEDS ORDERED: POTASSIUM CHLORIDE ORAL LIQUID 20 MEQ/15 ML ONE (11:58)
[2024-07-07] MEDS ORDERED: KCL 10 MEQ IVPB 20 MEQ/200 ML INFUS.BAG IVPB ONE (11:58)
[2024-07-07] MEDS: POTASSIUM CHLORIDE ORAL LIQUID 20 MEQ/15 ML PO ONE ×2 (12:20→14:35)
[2024-07-07] MEDS: KCL 10 MEQ IVPB 10 MEQ/100 ML INFUS.BAG IVPB SCH ×2 (13:00→14:33)
[2024-07-07] MEDS: MAGNESIUM OXIDE 400 MG TABLET (FP) PO ONE (13:00)
[2024-07-07 13:27] LABS: OVALOCYTE 2+; TARGET CELLS 2+
[2024-07-07 13:28] LABS: PLATELET ESTIMATE ADEQUATE
[2024-07-07] MEDS ORDERED: MAGNESIUM SULF 50% (8.12 MEQ/2 ML-1 GM VIAL) IVPB ONE (13:56)
[2024-07-07] MEDS: SODIUM CHLORIDE 0.9% 500 ML INFUS.BAG IV ONE (14:01)
[2024-07-07 14:34] LABS: EPITHELIAL CELLS 0-5 /hpf
[2024-07-07] MEDS: MAGNESIUM SULFATE IN WATER 2 GM/50 ML IVPB IVPB ONE (14:55)
[2024-07-07] MEDS: SODIUM CHLORIDE 0.9%/KCL 20 MEQ/1,000 ML INFUS.BAG IV SCH (15:20)
[2024-07-07] MEDS ORDERED: LOPERAMIDE HCL 2 MG CAPSULE PO PRN (15:32)
[2024-07-07 16:03] VITALS: BMI 19.5
[2024-07-07 20:14] LABS: CALCIUM 9.1 mg/dl (8.5-10.1); MAGNESIUM 2.1 mg/dL (1.8-2.4); POTASSIUM 3.1 mmol/L (3.5-5.1)
[2024-07-07] MEDS: LISINOPRIL 5 MG TABLET PO SCH (21:40)
[2024-07-07] MEDS ORDERED: LISINOPRIL 5 MG TABLET PO SCH (22:00)
[2024-07-08] MEDS: LEVOTHYROXINE NA 112 MCG TABLET (FP) PO SCH (06:26)
[2024-07-08] MEDS: metoPROLOL SUCCINATE 25 MG TAB.SR.24H (FP) PO SCH (09:22)
[2024-07-08] MEDS: PANTOPRAZOLE 40 MG TABLET PO SCH (09:22)
[2024-07-08] MEDS: ATORVASTATIN CA 40 MG TABLET (FP) PO SCH (09:22)
[2024-07-08] MEDS: ENOXAPARIN NA (PORCINE) 40 MG/0.4 ML DISP.SYRIN SQ SCH (09:25)
[2024-07-08 09:39] LABS: BASO % 0.9 % (0-2.0); EOS % 2.2 % (0-4.5); HEMATOCRIT 33.3 % (32.4-45.2); LYMPH % 19.9 % (8-40); MCH 26.4 pg (25.7-33.7); MEAN CELL VOLUME 80.1 fl (80-96); MEAN PLT VOLUME 8.2 fl (7.5-11.1); MONO % 10.9 % (3.8-10.2); NEUT % 66.1 % (42.8-82.8); PLATELET COUNT 264 10^3/uL (134-434); RBC 4.16 M/mm3 (3.60-5.2); RDW 14.9 % (11.6-15.6); WHITE BLOOD COUNT 4.4 K/mm3 (4.0-10.0)
[2024-07-08] MEDS ORDERED: metoPROLOL SUCCINATE 25 MG TAB.SR.24H (FP) PO SCH (10:00)
[2024-07-08 10:03] LABS: ALBUMIN 3.7 g/dl (3.4-5.0); BILIRUBIN,TOTAL 0.5 mg/dl (0.2-1); CALCIUM 8.9 mg/dl (8.5-10.1); CREATININE 0.8 mg/dl (0.6-1.3); MAGNESIUM 1.8 mg/dL (1.8-2.4); PHOSPHOROUS 2.6 (2.5-4.9); POTASSIUM 3.2 mmol/L (3.5-5.1); TOT PROT 5.6 g/dl (6.4-8.2)
[2024-07-08] MEDS: UMECLIDINIUM/VILANTEROL (ANORO) 62.5/25 MCG INHALER IH SCH (10:17)
[2024-07-08 10:33] VITALS: BP 121/55; PULSE 74; TEMP 98
[2024-07-08] MEDS: POTASSIUM CHLORIDE ORAL LIQUID 20 MEQ/15 ML PO ONE (10:37)
== END 2024-07-08 11:20 | disposition home or self-care (01) ==
LOC: FER 10:23 → INTOOBSV 13:35 → FM/S 13:35
PROVIDERS: ADMIT Internal Medicine
PROC: 3E023GC Introduction of Other Therapeutic Substance into Muscle, Percutaneous Approach (ICD-10-PCS; principal; 2024-07-07)
PROC: 3E033GC Introduction of Other Therapeutic Substance into Peripheral Vein, Percutaneous Approach (ICD-10-PCS; 2024-07-07)
PROC: 3E033GC Introduction of Other Therapeutic Substance into Peripheral Vein, Percutaneous Approach (ICD-10-PCS; 2024-07-07)
PROC: 3E0337Z Introduction of Electrolytic and Water Balance Substance into Peripheral Vein, Percutaneous Approach (ICD-10-PCS; 2024-07-07)
DX: E87.6 Hypokalemia (principal); R94.31 Abnormal electrocardiogram [ECG] [EKG]; E03.9 Hypothyroidism, unspecified; R42 Dizziness and giddiness; I05.0 Rheumatic mitral stenosis; M85.80 Other specified disorders of bone density and structure, unspecified site
CPT/HCPCS: 36415; 71045-TC-FY; 80048; 80053; 81003; 81015; 82533; 83735; 84100; 84439; 84443; 85025; 85027; 93005; 96361; 96365; 96366; 96367; 96372; 99291; G0378

== ENCOUNTER 2024-07-15 12:02 | Emergency (ER) | payer OTHER, BC ==
[2024-07-15 12:17] VITALS: RESP 16; TEMP 98.1; BMI 19.5
[2024-07-15 12:30] LABS: HEMATOCRIT 37.5 % (32.4-45.2); HEMOGLOBIN 12.2 G/dL (10.7-15.3); MCH 26.4 pg (25.7-33.7); MCHC 32.6 g/dl (32.0-36.0); MEAN PLT VOLUME 8.1 fl (7.5-11.1); PLATELET COUNT 320.7 10^3/uL (134-434); RBC 4.63 10^6/uL (3.60-5.2); RDW 16.1 % (11.6-15.6); WHITE BLOOD COUNT 8.3 10^3/uL (4.0-10.8)
[2024-07-15 12:45] LABS: ALBUMIN 4.2 g/dl (3.4-5.0); ALK PHOS 48 U/L (45-117); ANION GAP 8 mmol/L (4-13); BILIRUBIN,TOTAL 0.6 mg/dl (0.2-1); CALCIUM 9.6 mg/dl (8.5-10.1); CHLORIDE 100 mmol/L (98-107); CO2 30 mmol/L (21-32); GLUCOSE,RANDOM 104 mg/dl (74-106); MAGNESIUM 1.5 mg/dL (1.8-2.4); POTASSIUM 2.9 mmol/L (3.5-5.1); SGOT/AST 12 U/L (15-37); SGPT/ALT 9 U/L (7-52); SODIUM 138 mmol/L (136-145); TOT PROT 6.2 g/dl (6.4-8.2)
[2024-07-15 13:13] LABS: PLATELET ESTIMATE ADEQUATE
[2024-07-15] MEDS ORDERED: POTASSIUM CHLORIDE ORAL LIQUID 20 MEQ/15 ML ONE (13:34)
[2024-07-15] MEDS: POTASSIUM CHLORIDE ORAL LIQUID 20 MEQ/15 ML PO ONE (13:53)
[2024-07-15 18:37] VITALS: BP 129/49; PULSE 68
== END 2024-07-15 20:00 | disposition short-term general hospital (02) ==
LOC: FER 12:02
DX: E87.6 Hypokalemia (principal); E83.42 Hypomagnesemia; R19.7 Diarrhea, unspecified; R53.1 Weakness
CPT/HCPCS: 36415; 80053; 83735; 85027; 93005; 99285-25

== ENCOUNTER 2024-08-01 11:36 | Inpatient (IN) | payer OTHER, BC ==
[2024-08-01 12:07] VITALS: BMI 21.2
[2024-08-01 13:13] LABS: INR 1.15 (0.83-1.09); PROTHROMBIN TIME (PATIENT) 13.1 SEC (9.7-13.0)
[2024-08-01 13:16] LABS: ACTIVATED PTT 30.4 SECONDS (25.2-36.5)
[2024-08-01] MEDS: SODIUM CHLORIDE 1,000 ML IV STA (13:16)
[2024-08-01 13:17] LABS: HEMATOCRIT 33.2 % (32.4-45.2); HEMOGLOBIN 11.1 G/dL (10.7-15.3); MCH 26.1 pg (25.7-33.7); MCHC 33.3 g/dl (32.0-36.0); MEAN CELL VOLUME 78.3 fl (80-96); MEAN PLT VOLUME 8.7 fl (7.5-11.1); PLATELET COUNT 252.7 10^3/uL (134-434); RBC 4.24 10^6/uL (3.60-5.2); RDW 16.3 % (11.6-15.6); WHITE BLOOD COUNT 10.1 10^3/uL (4.0-10.8)
[2024-08-01 13:19] LABS: PLATELET ESTIMATE ADEQUATE
[2024-08-01 13:24] LABS: ALBUMIN 3.5 g/dl (3.4-5.0); BILIRUBIN,TOTAL 1.1 mg/dl (0.2-1); CALCIUM 8.9 mg/dl (8.5-10.1); CREATININE 0.8 mg/dl (0.6-1.3); MAGNESIUM 1.8 mg/dL (1.8-2.4); PHOSPHOROUS 2.5 (2.5-4.9); POTASSIUM 3.6 mmol/L (3.5-5.1); TOT PROT 6.1 g/dl (6.4-8.2)
[2024-08-01] MEDS ORDERED: cefTRIAXone SODIUM 1 GM VIAL ONE (15:34)
[2024-08-01] MEDS: CEFTRIAXONE 1 GM in DEXTROSE 5%-WATER - 50 ML IVPB SCH (15:50)
[2024-08-01 16:47] LABS: HEMATOCRIT 28.6 % (32.4-45.2); HEMOGLOBIN 9.6 G/dL (10.7-15.3); MCH 26.5 pg (25.7-33.7); MCHC 33.5 g/dl (32.0-36.0); MEAN CELL VOLUME 79.3 fl (80-96); MEAN PLT VOLUME 8.8 fl (7.5-11.1); PLATELET COUNT 212.3 10^3/uL (134-434); RBC 3.61 10^6/uL (3.60-5.2); RDW 16.6 % (11.6-15.6); WHITE BLOOD COUNT 7.5 10^3/uL (4.0-10.8)
[2024-08-01 16:49] LABS: HIV INTERPRETATION NEGATIVE (NEGATIVE)
[2024-08-01] MEDS: SODIUM CHLORIDE 1,000 ML IV SCH (17:00)
[2024-08-01 17:39] LABS: PLATELET ESTIMATE ADEQUATE
[2024-08-02] MEDS: LEVOTHYROXINE NA 112 MCG TABLET (FP) PO SCH (09:47)
[2024-08-02] MEDS: MULTIVITAMINS (DAILY MVI) TABLET (FP) PO SCH (09:47)
[2024-08-02] MEDS: ATORVASTATIN CA 40 MG TABLET (FP) PO SCH (09:47)
[2024-08-02 09:51] LABS: ALBUMIN 2.8 g/dl (3.4-5.0); BILIRUBIN,TOTAL 0.6 mg/dl (0.2-1); CALCIUM 7.9 mg/dl (8.5-10.1); CREATININE 0.7 mg/dl (0.6-1.3); MAGNESIUM 1.8 mg/dL (1.8-2.4); PHOSPHOROUS 2.7 (2.5-4.9); POTASSIUM 3.4 mmol/L (3.5-5.1); TOT PROT 4.9 g/dl (6.4-8.2)
[2024-08-02 11:42] LABS: BASO % 0.3 % (0-2.0); EOS % 0.1 % (0-4.5); HEMOGLOBIN 10.9 GM/dL (10.7-15.3); LYMPH % 5.4 % (8-40); MCH 25.5 pg (25.7-33.7); MEAN CELL VOLUME 77.1 fl (80-96); MEAN PLT VOLUME 8.5 fl (7.5-11.1); NEUT % 78.2 % (42.8-82.8); PLATELET COUNT 224 10^3/uL (134-434); RBC 4.27 M/mm3 (3.60-5.2); RDW 14.9 % (11.6-15.6); WHITE BLOOD COUNT 8.2 K/mm3 (4.0-10.0)
[2024-08-02] MEDS: POTASSIUM CHLORIDE ORAL LIQUID 20 MEQ/15 ML PO ONE (17:22)
[2024-08-02] MEDS: RIFAXIMIN 550 MG TABLET PO SCH (21:55)
[2024-08-03 08:53] LABS: HEMATOCRIT 32.8 % (32.4-45.2); HEMOGLOBIN 10.6 G/dL (10.7-15.3); MCH 25.7 pg (25.7-33.7); MCHC 32.3 g/dl (32.0-36.0); MEAN CELL VOLUME 79.4 fl (80-96); MEAN PLT VOLUME 9.1 fl (7.5-11.1); PLATELET COUNT 272.9 10^3/uL (134-434); RBC 4.13 10^6/uL (3.60-5.2); RDW 15.9 % (11.6-15.6); WHITE BLOOD COUNT 7.1 10^3/uL (4.0-10.8)
[2024-08-03 09:53] LABS: CALCIUM 8.5 mg/dl (8.5-10.1); CREATININE 0.7 mg/dl (0.6-1.3); MAGNESIUM 1.9 mg/dL (1.8-2.4); PHOSPHOROUS 2.8 (2.5-4.9); POTASSIUM 3.9 mmol/L (3.5-5.1); TOT PROT 5.3 g/dl (6.4-8.2)
[2024-08-03] MEDS: UMECLIDINIUM/VILANTEROL (ANORO) 62.5/25 MCG INHALER IH SCH (10:11)
[2024-08-03] MEDS: DIPHENOXYLATE 2.5/ATROPINE.025 1 COMBO TABLET PO PRN (10:11)
[2024-08-03] MEDS: LISINOPRIL 5 MG TABLET PO SCH (10:12)
[2024-08-03 15:43] LABS: BILIRUBIN,TOTAL 0.3 mg/dL (0.2-1)
[2024-08-04 06:29] VITALS: RESP 18
[2024-08-04 07:54] LABS: HEMATOCRIT 29.7 % (32.4-45.2); HEMOGLOBIN 9.5 G/dL (10.7-15.3); MCH 25.3 pg (25.7-33.7); MCHC 32.1 g/dl (32.0-36.0); MEAN CELL VOLUME 78.9 fl (80-96); MEAN PLT VOLUME 8.1 fl (7.5-11.1); RBC 3.77 10^6/uL (3.60-5.2); RDW 16.1 % (11.6-15.6); WHITE BLOOD COUNT 5.3 10^3/uL (4.0-10.8)
[2024-08-04 08:35] LABS: CALCIUM 8.5 mg/dl (8.5-10.1); CREATININE 0.7 mg/dl (0.6-1.3); MAGNESIUM 1.6 mg/dL (1.8-2.4); PHOSPHOROUS 3.7 (2.5-4.9); POTASSIUM 3.4 mmol/L (3.5-5.1)
[2024-08-04 10:19] VITALS: BP 129/54; PULSE 74; TEMP 97.5
[2024-08-04] MEDS: POTASSIUM CHLORIDE TABS 20 MEQ TABLET.ER (FP) PO ONE (10:19)
[2024-08-04] MEDS: MAGNESIUM 2GM/50ML STERILE WATER IVPB IVPB ONE (10:21)
[2024-08-04] MEDS ORDERED: REFRIGERATED ANITBIOTICS ONE (14:23)
== END 2024-08-04 13:16 | disposition home or self-care (01) | DRG 641 ==
LOC: FER 11:36 → FM/S 13:57 → OBSVTOIN 14:54
PROVIDERS: ATTEND Internal Medicine
DX: E86.0 Dehydration (principal); I24.89 Other forms of acute ischemic heart disease; I10 Essential (primary) hypertension; E78.5 Hyperlipidemia, unspecified; E03.9 Hypothyroidism, unspecified; M85.80 Other specified disorders of bone density and structure, unspecified site; J44.9 Chronic obstructive pulmonary disease, unspecified; G35 Multiple sclerosis; K52.9 Noninfective gastroenteritis and colitis, unspecified; W19.XXXA Unspecified fall, initial encounter; Y93.89 Activity, other specified; Y92.009 Unspecified place in unspecified non-institutional (private) residence as the place of occurrence of the external cause; Y99.8 Other external cause status; R53.1 Weakness
CPT/HCPCS: 0241U-QW; 36415; 70450-TC; 71045-TC-FY; 71260-TC; 72125-TC; 72170-TC-FY; 74177-TC; 74178-TC; 80048; 80053; 80061; 81003; 81015; 82272; 82438; 82550; 83036; 83735; 83986; 84100; 84302; 84439; 84443; 84484; 84999; 85025; 85027; 85610; 85730; 86803; 86850; 86900; 86901; 87086; 87186; 87205; 87338; 87389; 93005; 97116-GP; 97162-GP; 99285-25; G0378; Q9967